=== PATIENT | male | born 1970 | race Caucasian/White ===

== ENCOUNTER 2017-12-23 07:59 | Emergency (ER) | payer BC, SELFPAY ==
[2017-12-23 08:03] VITALS: BP 128/77; PULSE 70; RESP 19; TEMP 36.8; O2SAT 98
--- NOTE | 2017-12-23 09:05 | ED.GENADUL ---
Disposition Clinical Impression: Peritonsillar abscess Disposition: HOME Condition: Improving Instructions: Peritonsillar Abscess (ED) Additional Instructions: Drink plenty of fluids and get plenty of rest. Drink plenty of cold fluids as well as cold soft foods such as yogurt, ice cream. Refrain from crackers, chips or hot foods or drinks. Take the antibiotics until finished. Alternate Tylenol and Motrin as needed and directed for pain. Follow-up with your scheduled appointment with the primary care doctor's office with Burt Boone at 11:15 AM tomorrow. You should receive a call from care management regarding her follow-up appointment with the ear nose and throat doctor. Return immediately to the emergency department with any worsening or new concerning symptoms. Prescriptions: Clindamycin [Cleocin] 300 mg PO QID 10 Days cap Referrals: Tobi Velazquez MD [ [facility] STAFF PHYSICIAN] - Brandon Catherine DO [OSTEOPATHIC DOCTOR] - Medical Decision Making - Lab Data Laboratory Tests 12/23/17 12/23/17 12/23/17 09:20 09:20 09:20 WBC 9.66 RBC 5.12 Hgb 16.0 Hct 47.4 MCV 92.6 MCH 31.3 MCHC 33.8 RDW 13.1 Plt Count 198 MPV 10.4 Immature Gran % 0.2 Neutrophils % 70.6 Lymphocytes % 15.3 Monocytes % 12.9 Eosinophils % 0.7 Basophils % 0.3 Absolute Neutrophils 6.81 H Absolute Lymphocytes 1.48 Absolute Monocytes 1.25 H Absolute Eosinophils 0.07 Absolute Basophils 0.03 Sodium 136 Potassium 4.2 Chloride 102 Carbon Dioxide 25.5 Anion Gap 8.5 BUN 15 Creatinine 0.90 Estimated GFR/1.73 m2 >= 60.00 Glucose 97 Lactate 0.6 Calcium 8.7 - Radiology Data Radiology results: report reviewed, image reviewed CT neck: 36 x 22 mm left peritonsillar abscess with mild displacement of oral and nasopharynx. - Medical Decision Making 09 -- 47-year-old male who presents with left ear and throat pain for the past 6 days, worse this morning. Hot potato voice. Moderate edema, erythema and minimal exudate to left tonsil with some encroachment on uvula concerning for possible peritonsillar abscess. Otherwise appears nontoxic, speaking in full sentences, no drooling, no trismus and airway intact. Vitals within normal limits. No other acute significant findings on exam. Unable to view TMs bilaterally due to cerumen impaction. We will place an IV, bolus IV fluids, Solu-Medrol, clindamycin, labs and obtain CT neck to assess for abscess. 1130 -- discussed with radiologist Dr. Shelley --there is a 3.5 x 2.5 cm peritonsillar abscess. Epiglottitis and aryepiglottic folds appear normal. Will call ENT for recommendations. Question would be whether to needle aspirate or incision and drainage here or transfer to local ENT or [facility]. 1214 -- discussed with ENT Dr. Velazquez -recommends needle aspiration, clindamycin 300 mg 4 times daily ?10 days and follow-up with PCP. States no indication for follow-up with ENT. Recommend lidocaine with epinephrine. 1330 -- needle aspiration of peritonsillar abscess at bedside collected approximately 3 cc of purulent drainage. Patient tolerated procedure well with some pain and states he feels better. Bleeding minimal approximately 1-2 cc. Will have patient gargle with water and peroxide and observe for approximately an hour and if still feeling better, will discharge to home. Will make appointment for patient to be seen in the PCP office for tomorrow for reevaluation. 1445 -- patient observed for approximately 90 minutes after procedure and he feels much better. Patient is able to tolerate sips of water. Pt feels good and would like to go home. Script for clindamycin given. Will hold on steroids at this time as patient was given dose of Solu-Medrol here today and will be evaluated by PCP tomorrow. Appointment was made with Burt Boone tomorrow at 11:15 AM. Patient was instructed to return immediately to the emergency department any worsening or new concerning symptoms such as difficulty breathing, swallowing or any other concerns. Patient had expressed concern about his chronic earwax and question whether he needed follow-up with ENT. I instructed patient to use Debrox eardrops for his chronic cerumen and will have care management arrange for follow-up with ENT regarding his peritonsillar abscess if needed. History of Present Illness - General Chief complaint: Sorethroat Stated complaint: SORE THROAT Time Seen by Provider: 12/23/17 08:23 Source: patient Mode of arrival: ambulatory Limitations: no limitations - History of Present Illness Initial comments: Patient is a 47-year-old male presents with left ear pain and sore throat for the past 6 days worse this morning. Patient states 5 days ago he had right ear pain but this is now resolved. Patient admits to more difficulty with swallowing this morning but was able to take sips of water. Patient otherwise has been able to eat and drink for the past 3 days. Denies known fever coughing. - Related Data Valacyclovir HCl [Valtrex] 500 mg PO PRN PRN 03/04/17 Clindamycin [Cleocin] 300 mg PO QID 10 Days cap 12/23/17 Allergies Allergy/AdvReac Type Severity Reaction Status Date / Time No Known Allergies Allergy Unverified 03/04/17 10:04 Review of Systems Constitutional: denies: chills, fever Eyes: denies: eye pain ENT: ear pain, throat pain. denies: dental pain Respiratory: denies: cough, shortness of breath Cardiovascular: denies: chest pain, dyspnea on exertion Gastrointestinal: denies: abdominal pain, nausea, vomiting Genitourinary: denies: urgency, dysuria, frequency Musculoskeletal: denies: back pain Skin: denies: rash, lesions Neurological: denies: headache, weakness, numbness Past Medical History - Past Medical History Medical history: no medical history Surgical history: other (knee surgery) - Social History Smoking status: current everyday smoker Alcohol use: heavy (daily drinker) Drug use: none General Exam - General Limitations: no limitations General appearance: alert, in no apparent distress - Eye Eye exam: Present: PERRL, EOMI - ENT ENT exam: Present: other (Unable to view TMs bilaterally due to hard cerumen impaction. Significant left tonsillar edema, erythema with minimal exudate. Left tonsil appears to be encroaching on uvula. Hot potato voice. Able to swallow secretions and speak in full sentences. No drooling. No frontal or maxillary sinus tenderness palpation.) - Neck Neck exam: Present: normal inspection, other (Mild tenderness to left anterior neck.) - Respiratory Respiratory exam: Present: normal lung sounds bilaterally. Absent: respiratory distress, wheezes, rales, rhonchi, stridor - Cardiovascular Cardiovascular Exam: Present: regular rate, normal rhythm. Absent: bradycardia, tachycardia - Neurological Exam Neurological exam: Present: alert, oriented X3 - Psychiatric Psychiatric exam: Present: normal affect - Skin Skin exam: Present: warm, dry, intact Course Vital Signs - 24 hr 12/23/ 08:03 Temperature 98.2 F Pulse 70 Respiratory 19 Rate Blood Pressure 128/77 Pulse Oximetry 98 Procedures - Abscess I/D Consent Obtained: Verbal Consent Site: Other (Left tonsil) Side (if applicable): Left Local Anesthetic: Lidocaine 1%, With Epi Technique: Needle Aspiration Amount of Fluid: 3 Irrigation: Yes Packing used?: None Complications: Pain
[2017-12-23 09:34] LABS: Lactate-non-spesis 0.6 mmol/L (0.6-1.4)
[2017-12-23 09:37] LABS: Abs Immature Grans 0.02 k/cumm (0.0-0.09); Absolute Basophil Count 0.03 k/cumm (0.0-0.2); Absolute Eosinophil Count 0.07 k/cumm (0.0-0.7); Absolute Lymphocyte Count 1.48 k/cumm (1.2-3.4); Absolute Monocyte Count 1.25 k/cumm (0.11-0.7); Absolute Neutrophil Count 6.81 k/cumm (1.2-6.7); Basophils % 0.3; Eosinophils % 0.7; HCT 47.4 % (40.0-50.0); Immature Grans % 0.2; Lymphocytes % 15.3; Mean Corp. HGB Concentration 33.8 g/dL (32.0-36.0); Mean Corpuscular Hemoglobin 31.3 pg (27.0-33.0); Mean Corpuscular Volume 92.6 fL (80-95); Mean Platelet Volume 10.4 fL (8.0-11.0); Monocytes % 12.9; Neutrophils % 70.6; Platelet Count 198 x1000/uL (130-400); RBC 5.12 m/cumm (4.50-6.00); RBC Distribution Width 13.1 % (11.8-14.1); White Blood Cell Count 9.66 k/cumm (4.4-10.8)
[2017-12-23] MEDS: Normal Saline 1,000 ML 1000 ML IV (09:41)
[2017-12-23] MEDS: Ketorolac 30 MG/ML VIAL IVP (09:43)
[2017-12-23] MEDS: methylPREDNISolone SUCC 125 MG VIAL IVP (09:43)
[2017-12-23 09:44] LABS: Anion Gap 8.5 mmol/L (3-11); BUN 15 mg/dL (7-18); CO2 25.5 mmol/L (21.0-32.0); Calcium 8.7 mg/dL (8.5-10.1); Chloride 102 mmol/L (98-107); Glucose 97 mg/dL (70-100); Potassium 4.2 mmol/L (3.5-5.1); Sodium 136 mmol/L (136-145)
[2017-12-23] MEDS: CLINDAMYCIN 900 MG/50 ML BAG 100 MG IVPB (09:54)
[2017-12-23 10:47] VITALS: BP 108/66; PULSE 55; RESP 16; TEMP 36.8; O2SAT 98
[2017-12-23] MEDS: Omnipaque 350 MG/ML 100 ML BTL IJ (11:15)
--- NOTE | 2017-12-23 11:25 | DI.RPTCT_ITS ---
SYMPTOMS/DIAGNOSIS: LT TONSILLAR EDEMA AND ERYTHEMA WITH EXUDATES, ? ABSCESS CERVICAL CT: CT examination of the cervical region was performed utilizing multi-slice imaging with intravenous infusion of 100 cc's of Omnipaque 350. Images obtained through the lung apices are unremarkable. There is bilateral prominence of cervical lymph nodes without gross adenopathy. No cervical mass identified. The tracheal and laryngeal structures appear intact. There is an apparent left peritonsillar abscess measuring up to about 36 x 22 mm in diameter on transaxial imaging with low attenuation center. Mild displacement and compression of oropharynx and nasopharynx noted. CONCLUSION: Findings consistent with left peritonsillar abscess.
[2017-12-23] MEDS: LORazepam 2 MG/ML VIAL 0.5 MG IVP (13:02)
[2017-12-23 14:42] VITALS: BP 119/77; PULSE 74; RESP 17; TEMP 36.7; O2SAT 98
== END 2017-12-23 15:07 | disposition home or self-care (01) ==
PROVIDERS: Emergency Provider Physician Assistant; PCP Family Medicine
DX: J36 Peritonsillar abscess (principal); H92.02 Otalgia, left ear; F17.210 Nicotine dependence, cigarettes, uncomplicated
CPT/HCPCS: 10160; 36415; 70491; 80048; 87040; 96361; 96365; 96375; 99285; 83605; 85025; 87081; J2060; J2930; J3490

== ENCOUNTER 2019-02-11 11:27 | Outpatient (REF) | payer BC, SELFPAY ==
[2019-02-11 20:08] LABS: ALT 31 U/L (16-63); AST 28 U/L (15-37); Albumin 4.1 g/dL (3.4-5.0); Alkaline Phosphatase 82 U/L (46-116); Anion Gap 7.6 mmol/L (3-11); BUN 15 mg/dL (7-18); Bilirubin, Total 0.5 mg/dL (0.2-1.0); CO2 30.4 mmol/L (21.0-32.0); CREATININE 0.95 mg/dL (0.70-1.30); Calcium 9.1 mg/dL (8.5-10.1); Calculated LDL 110 mg/dL; Chloride 102 mmol/L (98-107); Cholesterol 195 mg/dL (50-200); Glucose 93 mg/dL (70-100); HDL Cholesterol 77 mg/dL (40-60); Potassium 4.5 mmol/L (3.5-5.1); Sodium 140 mmol/L (136-145); Total Protein 7.3 g/dL (6.4-8.2); Triglyceride 42 mg/dL (30-150)
== END 2019-02-11 11:47 ==
LOC: NCHCN 11:27
PROVIDERS: PCP Family Medicine; Visit Provider Family Medicine
DX: Z00.00 Encounter for general adult medical examination without abnormal findings (principal); Z13.228 Encounter for screening for other metabolic disorders; Z13.220 Encounter for screening for lipoid disorders
CPT/HCPCS: 80053; 80061

== ENCOUNTER 2019-07-19 08:57 | Outpatient (CLI) | payer BC, SELFPAY ==
[2019-07-25 09:31] LABS: COVID-19 RT-PCR Result Not Detected (NotDetected)
== END 2019-07-19 09:17 ==
LOC: EP 14:17 → LBO 14:18
PROVIDERS: PCP Family Medicine; Visit Provider Family Medicine
DX: Z20.828 Contact with and (suspected) exposure to other viral communicable diseases (principal); Z11.59 Encounter for screening for other viral diseases; R05 Cough
CPT/HCPCS: 87449; U0003

== ENCOUNTER 2020-03-06 15:54 | Outpatient (REF) | payer BC, SELFPAY ==
[2020-03-11 18:42] LABS: Patient Race White; SARS-CoV-2 RNA Undetected (Undetected); SARS-CoV-2 Specimen Source Nasal
== END 2020-03-06 16:14 ==
LOC: NCHCN 15:54
PROVIDERS: PCP Family Medicine; Visit Provider Family Medicine
DX: R05 Cough (principal)
CPT/HCPCS: U0003

== ENCOUNTER 2021-01-06 16:00 | Emergency (ER) | payer BC, SELFPAY ==
[2021-01-06] VITALS (58 sets, daily range): BP systolic 99–170; BP diastolic 27–120; PULSE 50–92; RESP 9–30; TEMP 36.4–36.5; O2SAT 78–100
--- NOTE | 2021-01-06 16:00 | DI.RAD_ITS ---
Exam(s) XR ELBOW LT COMPLETE XR FOREARM LT XR HUMERUS LT EXAM: XR HUMERUS LT CLINICAL HISTORY: fall, deformity. TECHNIQUE: 2D digital imaging was performed. COMPARISON: CR,XR XR ELBOW LT COMPLETE from 01/06/2021 CR,XR XR ELBOW LT COMPLETE from 01/06/2021 CR,XR XR FOREARM LT from 01/06/2021 CR,XR XR ELBOW LT COMPLETE from 01/06/2021 CR,XR XR FOREARM LT from 01/06/2021 FINDINGS: There is posterior dislocation of the proximal radius and ulna with respect to the distal humerus. T he positioning is suboptimal. A comminuted, displaced intra-articular fracture of the radial head a nd fracture of the tip of the olecranon is seen. Distal humerus appears intact. IMPRESSION: Comminuted, displaced radial head fracture. Posterior dislocation. DATA REPOSITORY: RADIATION DOSE DELIVERED:
--- NOTE | 2021-01-06 16:00 | DI.CT_ITS ---
Exam(s) CT HEAD CERVICAL SPINE WO EXAM: CT HEAD CERVICAL SPINE WO CLINICAL HISTORY: fall 30 feet. TECHNIQUE: Imaging Protocol: Axial computed tomography images with coronal and sagittal reformatted images were created and reviewed FINDINGS: Head CT Ventricles and Extra axial spaces: Normal in size and morphology for the patient's age. Hemorrhage: None. Cerebral parenchyma: Normal. Midline shift: None. Brainstem/Cerebellum: Normal. Calvarium: Normal. Visualized Paranasal sinuses/Mastoids: Mucous retention cyst right maxillary sinus. Mucosal thickeni ng ethmoids Cervical Spine CT BONES: Vertebral body heights are maintained. Alignment is normal. There is no evidence of acute frac ture. Degenerative disc changes and facet degenerative changes are seen . SOFT TISSUES: No paraspinal hematoma. The airway appears intact. No pneumothorax is seen at the lung apices. IMPRESSION: Head CT: No acute abnormality. C-spine CT: Degenerative changes, no acute abnormality. RADIATION DOSE DELIVERED: 1,895.72mGy.cm Total DLP DATA REPOSITORY: All CT scans at this facility are submitted to the National Radiology Data Registry (NRDR) Dose Index Registry (DIR) with the [employer] (A[employer]). RADIATION OPTIMIZATION: All CT scans at this facility use at least one of these dose optimization te chniques: automated exposure control; mA and/or kV adjustment per patient size (includes targeted exa ms where dose is matched to clinical indication); or iterative reconstruction.
--- NOTE | 2021-01-06 16:00 | RT.EKG_ITS ---
APPROVED REPORT Exam: Resting ECG Reason for Exam: diaphoresis Patient Location: E HR:58 bpm ECG Measurements Heart Rate 58 AXIS SD 229 P 32 QRSd 103 QRS 0 QT 375 T 49 QTc 369 Conclusion Sinus bradycardia...rate< 60 Prolonged SD interval...SD >210, V-rate 50- 90 ST elev, probable normal early repol pattern...ST elevation, age<55
--- NOTE | 2021-01-06 16:15 | DI.CT_ITS ---
Exam(s) CT THORACIC LUMBAR SPINE WO CT CHEST/ABD/PEL W EXAM: CT CHEST/ABD/PEL W CLINICAL HISTORY: fall 30 ft, left arm deformity. TECHNIQUE: Imaging Protocol: Axial computed tomography images with coronal and sagittal reformatted images were created and reviewed CONTRAST MATERIAL: Intravenous: Omnipaque 350 Contrast volume:100 ml Oral: no COMPARISON: CT CT HEAD CERVICAL SPINE WO from 01/06/[address] HEAD CERVICAL SPINE WO from 01/06/[address] THORACIC LUMBAR SPINE WO from 01/06/[address] THORACIC LUMBAR SPINE WO from 01/06/2021 FINDINGS: CHEST and thoracic spine: Tracheobronchial tree: Patent where visualized. Mediastinum and Puja: No dominant adenopathy or fluid collection. Pulmonary parenchyma: Dependent changes. No consolidation or dominant measurable mass. Pleura: No effusion or pneumothorax. Lymph nodes: Within normal limits. Aorta: Thoracic portion non-dilated. No dissection. Heart: Normal size. No pericardial effusion. Bones: Unremarkable for age. No fracture or no lytic or blastic lesions. Mild scoliosis. Developme ntal ossicle adjacent to the tip of the spinous process of T3 and T4. No evidence of acute fracture. ABDOMEN and lumbar spine: Liver: Normal density. No measurable mass. Gallbladder and biliary tract: No radiodense calculus or dilation. Pancreas: Normal density, no abnormal calcifications or inflammatory process. Spleen: Normal size. Granulomas.. Kidneys: Normal size, contour and axis. No radiodense stones or obstructive uropathy. Bilateral cysts . Adrenal glands: No masses seen. Aorta: Abdominal portion non-dilated. Lymph nodes: Within normal limits. Soft tissues: Unremarkable. Bones: Minimal degenerative changes. No evidence of fracture. No gross evidence of disc herniation. PELVIS: Bladder: Symmetric distention, no gross wall thickening. Bowel: No obstruction or bowel wall thickening. Peritoneal cavity: No ascites, collection or mesenteric inflammatory response. No free air. Bones: Unremarkable for age.. No fracture. Reproductive organs: Within normal limits. IMPRESSION: No acute abnormality in the chest abdomen or pelvis.. RADIATION DOSE DELIVERED: Total DLP DATA REPOSITORY: All CT scans at this facility are submitted to the National Radiology Data Registry (NRDR) Dose Index Registry (DIR) with the [employer] (ACR). RADIATION OPTIMIZATION: All CT scans at this facility use at least one of these dose optimization te chniques: automated exposure control; mA and/or kV adjustment per patient size (includes targeted exa ms where dose is matched to clinical indication); or iterative reconstruction.
[2021-01-06] MEDS: fentaNYL 100 MCG/2 ML VIAL IVP ×2 (16:17→17:23)
[2021-01-06 16:28] LABS: Source Nasal/Nares
[2021-01-06 16:29] LABS: Abs Immature Grans 0.04 10^3/uL (0.0-0.06); Absolute Basophil Count 0.07 10^3/uL (0.0-0.2); Absolute Eosinophil Count 0.17 10^3/uL (0.0-0.7); Absolute Lymphocyte Count 2.67 10^3/uL (1.2-3.4); Absolute Monocyte Count 0.98 10^3/uL (0.1-0.8); Absolute Neutrophil Count 7.64 10^3/uL (1.2-6.7); Basophils % 0.6; Eosinophils % 1.5; HCT 46.2 % (40.0-50.0); HGB 15.2 g/dL (13.5-17.5); Immature Grans % 0.3; Lymphocytes % 23.1; MCH 31.3 pg (27.0-33.0); MCHC 32.9 % (32.0-36.0); MCV 95.1 fL (80-95); MPV 10.3 fL (8.0-11.0); Monocytes % 8.5; Nucleated RBC 0 %; Platelet Count 263 10^3/uL (130-400); RBC 4.86 10^6/uL (4.36-5.78); RDW 12.6 % (11.8-14.1); RDW-SD 44.4 fL; WBC 11.57 10^3/uL (4.4-10.8)
[2021-01-06 16:42] LABS: ALT 35 U/L (16-63); AST 29 U/L (15-37); Albumin 3.9 g/dL (3.4-5.0); Alkaline Phosphatase 92 U/L (46-116); Anion Gap 13.8 mmol/L (3-11); BUN 16 mg/dL (7-18); Bilirubin, Total 0.4 mg/dL (0.2-1.0); CO2 22.2 mmol/L (21.0-32.0); CREATININE 1.4 mg/dL (0.70-1.30); Calcium 9.2 mg/dL (8.5-10.1); Chloride 104 mmol/L (98-107); ETHANOL BLOOD 25.2 mg/dL (<3); Estimated GFR 53.86 (mL/min/1.73m2); Glucose 91 mg/dL (74-106); Potassium 3.7 mmol/L (3.5-5.1); Sodium 140 mmol/L (136-145); Total Protein 7.4 g/dL (6.4-8.2)
--- NOTE | 2021-01-06 16:57 | DI.VRAD_ITS ---
PROCEDURE INFORMATION: Exam: CT Head Without Contrast Exam date and time: 01/06/2021 4:14 PM Age: 50 years old Clinical indication: Injury or trauma; Fall; Blunt trauma (contusions or hematomas) TECHNIQUE: Imaging protocol: Computed tomography of the head without contrast. COMPARISON: None FINDINGS: Brain: No acute post-traumatic brain injury. Symmetric caliber of the cortical sulci. Normal coyle-white matter differentiation. Dural calcification. Cerebral ventricles: Normal configuration of the ventricles. Paranasal sinuses: Polypoid lesions in the right maxillary and sphenoid sinuses. Mastoid air cells: No mastoid effusion. Bones/joints: No acute calvarial injury. Soft tissues: No significant scalp hematoma. IMPRESSION: No acute post-traumatic brain injury. PROCEDURE INFORMATION: Exam: CT Cervical Spine Without Contrast Exam date and time: 01/06/2021 4:14 PM Age: 50 years old Clinical indication: Injury or trauma; Fall; Blunt trauma (contusions or hematomas) TECHNIQUE: Imaging protocol: Computed tomography images of the cervical spine without contrast. COMPARISON: CT Neck^NECK ST W ROUTINE (Adult) 12/23/2017 11:06 AM FINDINGS: Bones/joints: No acute bony injury or malalignment in the cervical spine. Discs/Spinal canal/Neural foramina: Degenerative change and disc bulging. Oropharynx: Tonsillar calcifications. Hypopharynx: Nondistention of the left piriform sinus. Lungs: Unremarkable apices as visualized. Soft tissues: Unremarkable. IMPRESSION: No acute bony injury or malalignment in the cervical spine. Dictated and Authenticated by: Sagar Archuleta MD. Ordering:DICK Rainey MD
[2021-01-06] MEDS: Normal Saline Flush 10 ML SYR IVP (17:01)
[2021-01-06] MEDS: Omnipaque 350 MG/ML 100 ML BTL IJ (17:01)
[2021-01-06 17:22] LABS: COVID-19 PCR Negative (Negative)
[2021-01-06] MEDS: Lactated Ringers 1,000 ML 1000 ML IV (17:24)
--- NOTE | 2021-01-06 17:24 | DI.VRAD_ITS ---
PROCEDURE INFORMATION: Exam: CT Chest With Contrast; Diagnostic Exam date and time: 01/06/2021 4:48 PM Age: 50 years old Clinical indication: Injury or trauma; Fall; Luq; Blunt trauma (contusions or hematomas) TECHNIQUE: Imaging protocol: Diagnostic computed tomography of the chest with contrast. Contrast material: OMNIPAQUE 350; Contrast volume: 100 ml; Contrast route: INTRAVENOUS (IV); COMPARISON: CT HEAD CERVICAL SPINE WO 01/06/2021 4:39 PM FINDINGS: Lungs: Dependent atelectasis within the lung bases. Pleural spaces: Unremarkable. No pneumothorax. No pleural effusion. Heart: Unremarkable. No cardiomegaly. No pericardial effusion. Aorta: Unremarkable. No aortic aneurysm. Lymph nodes: Unremarkable. No enlarged lymph nodes. Bones/joints: Possible nondisplaced fracture of the tip of the spinous process of T3 (sagittal reformatted image 86, series 7). Correlate with pain at this site. Soft tissues: Unremarkable. IMPRESSION: 1. Possible nondisplaced fracture of the tip of the T3 spinous process. Correlate with pain at this site. 2. Dependent atelectasis within the lung bases. PROCEDURE INFORMATION: Exam: CT Abdomen And Pelvis With Contrast Exam date and time: 01/06/2021 4:48 PM Age: 50 years old Clinical indication: Injury or trauma; Fall; Luq; Blunt trauma (contusions or hematomas) TECHNIQUE: Imaging protocol: Computed tomography of the abdomen and pelvis with contrast. Contrast material: OMNIPAQUE 350; Contrast volume: 100 ml; Contrast route: INTRAVENOUS (IV); COMPARISON: CT HEAD CERVICAL SPINE WO 01/06/2021 4:39 PM FINDINGS: Liver: Unremarkable. No mass. Gallbladder and bile ducts: Unremarkable. No calcified stones. No ductal dilation. Pancreas: Unremarkable. No ductal dilation. Spleen: Multiple calcified granulomas within the spleen. No splenic mass or laceration. Adrenal glands: Normal. No mass. Kidneys and ureters: Bilateral renal cysts and low-density lesions, too small to accurately characterize. No renal stone or hydronephrosis. Stomach and bowel: Unremarkable. No obstruction. No mucosal thickening. Appendix: No evidence of appendicitis. Intraperitoneal space: Unremarkable. No free air. No significant fluid collection. Vasculature: Unremarkable. No abdominal aortic aneurysm. Lymph nodes: Unremarkable. No enlarged lymph nodes. Urinary bladder: Unremarkable as visualized. Reproductive: Unremarkable as visualized. Bones/joints: Posterior dislocation of the left elbow with fracture of the left radial head, incompletely visualized. Soft tissues: Unremarkable. IMPRESSION: 1. No acute abdominopelvic process. 2. Posterior dislocation of the left elbow with fracture of the radial head, incompletely visualized.. Dictated and Authenticated by: Marcelino Thayer MD. Ordering:DICK Rainey MD
--- NOTE | 2021-01-06 17:44 | DI.VRAD_ITS ---
PROCEDURE INFORMATION: Exam: XR Left Elbow Exam date and time: 01/06/2021 5:08 PM Age: 50 years old Clinical indication: Injury or trauma; Fall; Dislocation; Severity not specified; Elbow; Left TECHNIQUE: Imaging protocol: XR Left elbow. Views: 3 or more views. COMPARISON: No relevant prior studies available. FINDINGS: Bones/joints: There is posterior dislocation of the elbow joint. There is a comminuted, displaced intra-articular fracture of the radius head. There is a possible tiny fracture at the tip of the olecranon seen on the lateral exam. Soft tissues: There is swelling of the elbow soft tissues. No soft tissue radiopaque foreign body. IMPRESSION: 1. Posterior dislocation of the elbow joint. 2. Comminuted displaced fracture of the radius head. 3. Possible tiny fracture at the tip of the olecranon. Dictated and Authenticated by: Marcelino Thayer MD. Ordering:DICK Rainey MD
--- NOTE | 2021-01-06 17:47 | DI.VRAD_ITS ---
PROCEDURE INFORMATION: Exam: XR Left Forearm Exam date and time: 01/06/2021 5:08 PM Age: 50 years old Clinical indication: Injury or trauma; Fall; Blunt trauma (contusions or hematomas); Arm, upper and elbow and arm, lower; Left TECHNIQUE: Imaging protocol: XR Left forearm. Views: 2 views. COMPARISON: CR XR ELBOW LT COMPLETE 01/06/2021 5:00 PM FINDINGS: Bones/joints: There is posterior dislocation of the elbow joint. There is a comminuted displaced fracture of the radius head. There is a tiny fracture at the tip of the olecranon. The wrist joint is not visualized on this examination. Soft tissues: There is swelling of the soft tissues of the elbow. IMPRESSION: 1. Posterior dislocation of the elbow joint. 2. Comminuted, displaced fracture of the radius head. 3. Tiny fracture of the tip of the olecranon. Dictated and Authenticated by: Marcelino Thayer MD. Ordering:DICK Rainey MD
--- NOTE | 2021-01-06 17:49 | DI.VRAD_ITS ---
PROCEDURE INFORMATION: Exam: XR Left Humerus Exam date and time: 01/06/2021 5:08 PM Age: 50 years old Clinical indication: Injury or trauma; Fall; Blunt trauma (contusions or hematomas); Arm, upper and elbow and arm, lower; Left TECHNIQUE: Imaging protocol: XR Left humerus. Views: 2 or more views. COMPARISON: CR XR ELBOW LT COMPLETE 01/06/2021 5:00 PM FINDINGS: A single AP view of the left humerus is submitted. No displaced fracture is identified. The distal end of the humerus and the elbow joint is not visualized. The acromioclavicular joint is intact. The glenohumeral joint is grossly intact. If there is a clinical concern for posterior dislocation then scapular Y-view should be performed. IMPRESSION: Grossly intact humerus on this single AP view. Dictated and Authenticated by: Marcelino Thayer MD. Ordering:DICK Rainey MD
[2021-01-06] MEDS: Propofol 200 MG/20 ML VIAL 100 MG IVP ×3 (18:02→18:06)
[2021-01-06] MEDS: Propofol 200 MG/20 ML VIAL ×3 (18:09→18:13)
--- NOTE | 2021-01-06 18:15 | DI.RAD_ITS ---
Exam(s) XR ELBOW LT COMPLETE EXAM: XR ELBOW LT COMPLETE CLINICAL HISTORY: post reduction films. TECHNIQUE: 2D digital imaging was performed. COMPARISON: CR,XR XR ELBOW LT COMPLETE from 01/06/2021 FINDINGS: A posterior splint has been placed. The previously noted dislocation has been reduced. A comminuted fracture of the radial head with significant displacement and separation of fracture fragments is no rene. No fractures are visible of the distal humerus or proximal ulna. A joint effusion is seen. IMPRESSION: Status post reduction of posterior dislocation. Comminuted displaced fracture of the radial head. DATA REPOSITORY: RADIATION DOSE DELIVERED:
--- NOTE | 2021-01-06 18:56 | ED.GENADUL_ITS ---
Discharge Plan Disposition Patient Disposition: HOME Condition: Good Discharge Details Clinical Impression: Closed fracture dislocation of elbow, Fracture of thoracic spine Primary Care Provider: Nayeli Rios V ED Provider: Brigid Johnson Home Meds and New Rx's Prescriptions: New hydromorphone [Dilaudid] 2 mg tablet 2 mg PO Q6H PRNQty: 10 RF: 0 Continued valacyclovir [Valtrex] 500 MG tablet 500 mg PO PRN PRNRF: 0 Discharge Instructions Additional Instructions: Call orthopedics for follow-up on Thursday, keep your splint in place Ice, take ibuprofen 600 mg every 8 hours with food Do not combine alcohol and Dilaudid Take Dilaudid only as needed as this medication is addictive and can make you constipated, do not operate your vehicle for 8 hours after taking this medication Stand Alone Forms: Work Release Referrals: Mumtaz Walls MD [ [facility] - Discharge Data Discharge Date/Time-TO BE ENTERED AT DEPARTURE: 01/06/21 22:45 Medical Decision Making <VAL Mars - Last Filed: 01/07/21 16:27> Patient is alert and oriented, he is quite diaphoretic and in significant pain He has a deformity to his left elbow Given the mechanism of injury, falling approximately 30 feet, I will order CT head, cervical spine, chest, abdomen, pelvis, and left elbow x-ray Patient is neurovascularly intact, alert and oriented Line was placed Patient was given 100 mcg of fentanyl with mild relief in symptoms Type and screen and blood including CBC and CMP were ordered Patient was sedated and reduction was performed the patient left elbow Patient tolerated this procedure with a significant amount of conscious sedation, please see Dr. Duarte's documentation I did review his CT imaging and appears to be a preserved inferior posterior radial head dislocation, this was discussed with Dr. Stallworth, orthopedist at [facility] and secondary to the fracture, this is unable to be reduced without surgery, he does not recommend emergent reassessment and reduction and states that patient is stable for outpatient follow-up on Thursday with Dr. Walls CT chest, abdomen, and pelvis reviewed and do not show acute abnormality, initially it was thought that the T2 fracture was acute, however patient does not have any tenderness in this area and my suspicion that this is she is quite low Patient discharged home in stable condition feeling symptomatically improved, ambulatory with steady gait at time of discharge home HPI <VAL Mars Last Filed: 01/07/21 16:27> General Mode of arrival: wheelchair . Date/Time Provider Initiated Documentation: 01/06/21 16:03 . Limitations to Documentation: no limitations . Information obtained by: patient . HPI Narrative: This 50-year-old gentleman with history of alcoholism presents for 30 foot fall out of tree where he rolled. He landed on his left side. He denies loss of consciousness. He has significant pain with deformity to his left elbow. He denies any history of anticoagulation, chest pain, abdominal pain, or any additional complaints at this time. He did have 2 beers prior to working on a tree in his yard. He states his drove him to the emergency room. He was ambulatory after the event occurred. He is unable to move his elbow. He denies any shortness of breath. He denies any urinary issues. Related Data Home Medications Medication Instructions Recorded Confirmed valacyclovir [Valtrex] 500 mg PO PRN PRN 03/04/17 01/06/21 hydromorphone [Dilaudid] 2 mg PO Q6H PRN #10 tab 01/06/21 Previous Rx's Medication Instructions Recorded hydromorphone [Dilaudid] 2 mg PO Q6H PRN #10 tab 01/06/21 Allergies Allergy/AdvReac Type Severity Reaction Status Date / Time No Known Allergies Allergy Unverified 03/04/17 10:04 General Stated Complaint: Trauma JULIÁN: 2 Review of Systems <VAL Mars - Last Filed: 01/07/21 16:27> All systems reviewed & are unremarkable except as noted in HPI and below PFSH <VAL Mars - Last Filed: 01/07/21 16:27> Social History Smoking/Tobacco Use Status: Current every day Smoking risk assessment performed?: Yes Alcohol Intake: current Drug use: Occasionally Do you feel safe in your relationship?: Yes Exam <VAL Mars Last Filed: 01/07/21 16:27> Const General: ill appearing HENDC Head: normal to inspection Face and sinus: normal facial exam Other: Uvula midline No hemotympanum Eyes Pupils: PERRL Neck Other: No midline tenderness Chest Other: Ecchymosis noted to anterior thorax, no crepitus no flail chest Resp Effort & Inspection: normal respiratory effort Auscultation: clear to auscultation bilaterally Cardio Rate: regular rate Rhythm: regular rhythm Other: Distal pulses intact all 4 extremities GI Other: Ecchymosis laterally to the right, nontender Other: No scrotal abnormality or bruising Skin Other: No tenderness to thoracic or lumbar spine, no CVA tenderness, no abdominal bruit or pulsatile mass Neuro General: patient alert and patient oriented x3 Cranial Nerves: CN's II-XI intact bilaterally Other: GCS 15 Strength and sensation intact to all unaffected extremities, sensation intact to affected extremity Extrem Other: Distal pulses intact, obvious deformity to left elbow No open fracture, neurovascularly intact Psych Appearance: well kempt Course <VAL Mars - Last Filed: 01/07/21 16:27> Vital Signs Vital signs: Vital Signs Pulse 70 01/06/21 16:07 Respiratory Rate 22 01/06/21 16:07 Blood Pressure 129/83 01/06/21 16:07 Pulse Oximetry 100 01/06/21 16:07 Pulse 55 L 01/06/21 18:31 Pulse 63 01/06/21 18:32 Respiratory Rate 16 01/06/21 18:32 Respiratory Effort 01/06/21 17:33 Respiratory Depth Normal 01/06/21 17:33 Respiratory Pattern Normal 01/06/21 17:33 Blood Pressure 152/95 H 01/06/21 18:31 Blood Pressure Mean 105 01/06/21 18:31 Blood Pressure Position Sitting 01/06/21 16:07 Pulse Oximetry 99 01/06/21 18:32 Respiratory End-tidal CO2 31 01/06/21 18:32 Oxygen Delivery Method Room Air 01/06/21 16:07 Oxygen Flow Rate 0 01/06/21 16:07 Pain Level 8 01/06/21 17:23 Lab/Test Results Lab/Test Results: Laboratory Tests Range/Units 01/06/21 01/06/21 01/06/21 16:10 16:10 16:10 WBC (4.4-10.8) 10^3/uL 11.57 H RBC (4.36-5.78) 10^6/uL 4.86 Hgb (13.5-17.5) g/dL 15.2 Hct (40.0-50.0) % 46.2 MCV (80-95) fL 95.1 H MCH (27.0-33.0) pg 31.3 MCHC (32.0-36.0) % 32.9 RDW (11.8-14.1) % 12.6 Plt Count (130-400) 10^3/uL 263 MPV (8.0-11.0) fL 10.3 Immature Gran % 0.3 Neutrophils % 66.0 Lymphocytes % 23.1 Monocytes % 8.5 Eosinophils % 1.5 Basophils % 0.6 Nucleated RBC % % 0 Absolute Neutrophils (1.2-6.7) 10^3/uL 7.64 H Absolute Lymphocytes (1.2-3.4) 10^3/uL 2.67 Absolute Monocytes (0.1-0.8) 10^3/uL 0.98 H Absolute Eosinophils (0.0-0.7) 10^3/uL 0.17 Absolute Basophils (0.0-0.2) 10^3/uL 0.07 Sodium (136-145) mmol/L 140 Potassium (3.5-5.1) mmol/L 3.7 Chloride (98-107) mmol/L 104 Carbon Dioxide (21.0-32.0) mmol/L 22.2 Anion Gap (3-11) mmol/L 13.8 H BUN (7-18) mg/dL 16 Creatinine (0.70-1.30) mg/dL 1.4 H Estimated GFR/1.73 m2 (mL/min/1.73m2) 53.86 Glucose (74-106) mg/dL 91 Calcium (8.5-10.1) mg/dL 9.2 Total Bilirubin (0.2-1.0) mg/dL 0.4 AST (15-37) U/L 29 ALT (16-63) U/L 35 Alkaline Phosphatase (46-116) U/L 92 Total Protein (6.4-8.2) g/dL 7.4 Albumin (3.4-5.0) g/dL 3.9 Ethyl Alcohol (<3) mg/dL 25.2 COVID-19 Source SARS-CoV-2 (PCR) (Negative) Patient ABO/Rh O Positive Antibody Screen NEGATIVE Range/Units 01/06/21 16:20 WBC (4.4-10.8) 10^3/uL RBC (4.36-5.78) 10^6/uL Hgb (13.5-17.5) g/dL Hct (40.0-50.0) % MCV (80-95) fL MCH (27.0-33.0) pg MCHC (32.0-36.0) % RDW (11.8-14.1) % Plt Count (130-400) 10^3/uL MPV (8.0-11.0) fL Immature Gran % Neutrophils % Lymphocytes % Monocytes % Eosinophils % Basophils % Nucleated RBC % % Absolute Neutrophils (1.2-6.7) 10^3/uL Absolute Lymphocytes (1.2-3.4) 10^3/uL Absolute Monocytes (0.1-0.8) 10^3/uL Absolute Eosinophils (0.0-0.7) 10^3/uL Absolute Basophils (0.0-0.2) 10^3/uL Sodium (136-145) mmol/L Potassium (3.5-5.1) mmol/L Chloride (98-107) mmol/L Carbon Dioxide (21.0-32.0) mmol/L Anion Gap (3-11) mmol/L BUN (7-18) mg/dL Creatinine (0.70-1.30) mg/dL Estimated GFR/1.73 m2 (mL/min/1.73m2) Glucose (74-106) mg/dL Calcium (8.5-10.1) mg/dL Total Bilirubin (0.2-1.0) mg/dL AST (15-37) U/L ALT (16-63) U/L Alkaline Phosphatase (46-116) U/L Total Protein (6.4-8.2) g/dL Albumin (3.4-5.0) g/dL Ethyl Alcohol (<3) mg/dL COVID-19 Source Nasal/Nares SARS-CoV-2 (PCR) (Negative) Negative Patient ABO/Rh Antibody Screen Procedures <VAL Mars - Last Filed: 01/07/21 16:27> Orthopedic Fracture Reduction Fracture #1: Time Out Performed: Yes Side: left Fracture Reduction Location: radius Technique: direct manipulation and traction/counter-traction Post Reduction X-rays Demonstrate: anatomical reduction Post-reduction neuro exam: no change Post-reduction vascular exam: intact Splint Applied: Yes Patient Tolerated Procedure: well <Cj Duarte MD - Last Filed: 01/06/21 19:15> Procedural Sedation Indication: fracture/dislocation reduction Presedation Evaluation: normally healthy male without allergies and prior surgeries on his knee without complications with anesthsia ASA Class: I Preparation: nuclear monitoring technician applied, pulse oximeter, capnometry used, supplemental O2 applied, suction/airway equipment at bedside and IV secured Fentanyl: IV IV Propofol dose (mg): 400 Patient Tolerated Procedure: well Complications: none Additional Comments: patient initially given 100mg, and then subsequently was given 50mg x4 and then another 100mg to obtain adequate sedation and had reduction of the elbow, no complications. Total 400mg given
--- NOTE | 2021-01-06 18:57 | RESPIRATORY ---
Pt had conscious sedation for left elbow dislocation. AFWNL, no complications. Pt stable and on RA, awake, alert, talking.
[2021-01-06] MEDS: HYDROmorphone 2 MG/ML VIAL 1 MG IVP ×2 (19:00→19:20)
--- NOTE | 2021-01-06 19:03 | DI.VRAD_ITS ---
PROCEDURE INFORMATION: Exam: CT Thoracic Spine Without Contrast Exam date and time: 01/06/2021 4:48 PM Age: 50 years old Clinical indication: Injury or trauma; Fall; Blunt trauma (contusions or hematomas) TECHNIQUE: Imaging protocol: Computed tomography images of the thoracic spine without contrast. COMPARISON: CT HEAD CERVICAL SPINE WO 01/06/2021 4:39 PM FINDINGS: Vertebrae: There are small enthesophytes projecting from the inferior edges of the T3 and T4 spinous processes with linear lucencies at both sites. These changes are likely old. Correlate clinically with pain localized to these areas to exclude acute nondisplaced fractures. The facet joints throughout the thoracic spine are intact. Vertebral body morphology is normal. There are mild degenerative disc changes throughout the thoracic spine and there is a mild accentuation of the thoracic kyphosis. There is a mild scoliosis of the thoracic spine. No subluxation is identified. Discs/Spinal canal/Neural foramina: No bony spinal stenosis is present. Other bones/joints: Bone density is normal. Soft tissues: Unremarkable. Lungs: There are dependent changes within the lung bases. IMPRESSION: There are small enthesophytes projecting from the inferior edges of the T3 and T4 spinous processes with linear lucencies at both sites. These changes are likely old. Correlate clinically with pain localized to these areas to exclude acute nondisplaced fractures. PROCEDURE INFORMATION: Exam: CT Lumbar Spine Without Contrast Exam date and time: 01/06/2021 4:48 PM Age: 50 years old Clinical indication: Injury or trauma; Fall; Blunt trauma (contusions or hematomas) TECHNIQUE: Imaging protocol: Computed tomography images of the lumbar spine without contrast. COMPARISON: CT HEAD CERVICAL SPINE WO 01/06/2021 4:39 PM FINDINGS: Vertebrae: Vertebral body morphology is normal. The facet joints are intact. No fracture or subluxation is identified. Discs/Spinal canal/Neural foramina: Mild degenerative disc disease and facet arthrosis is present within the mid and lower lumbar spine. No severe bony spinal stenosis. Other bones/joints: Bone density is normal. Kidneys and ureters: Bilateral renal cysts and too small to accurately characterize low-density renal lesions. Soft tissues: Unremarkable. IMPRESSION: 1. Mild degenerative spondylosis of the lumbar spine. 2. No fracture. Dictated and Authenticated by: Marcelino Thayer MD. Ordering:DADA Corona MD
--- NOTE | 2021-01-06 20:30 | DI.CT_ITS ---
Exam(s) CT UPPER EXTREMITY LT WO EXAM: CT UPPER EXTREMITY LT WO CLINICAL HISTORY: fracture disclocation elbow TECHNIQUE: Imaging Protocol: Axial computed tomography images with coronal and sagittal reformatted images were created and reviewed. CONTRAST MATERIAL: Noncontrast COMPARISON: CR,XR XR ELBOW LT COMPLETE from 01/06/2021 CR,XR XR ELBOW LT COMPLETE from 01/06/2021 FINDINGS: Bones: There is a comminuted fracture of the radial head and neck with significant displacement later ally and inferiorly. No bony fragments are seen in the joint space. The distal humerus and proximal ulna appear intact and normally aligned.. A joint effusion is seen. There is soft tissue swelling. . IMPRESSION: Markedly comminuted and displaced fracture of the radial head. RADIATION DOSE DELIVERED: 269.53mGy.cm Total DLP DATA REPOSITORY: All CT scans at this facility are submitted to the National Radiology Data Registry (NRDR) Dose Index Registry (DIR) with the [employer] (A[employer]). RADIATION OPTIMIZATION: All CT scans at this facility use at least one of these dose optimization te chniques: automated exposure control; mA and/or kV adjustment per patient size (includes targeted exa ms where dose is matched to clinical indication); or iterative reconstruction.
--- NOTE | 2021-01-06 20:38 | DI.VRAD_ITS ---
PROCEDURE INFORMATION: Exam: XR Left Elbow Exam date and time: 01/06/2021 6:20 PM Age: 50 years old Clinical indication: Pain; Elbow; Left; Patient HX: Post reduction films TECHNIQUE: Imaging protocol: XR Left elbow. Views: 3 or more views. COMPARISON: CR XR ELBOW LT COMPLETE 01/06/2021 5:00 PM FINDINGS: Tubes, catheters and devices: Posterior splint is present. Bones/joints: The humeral-ulnar joint has been reduced since the previous exam. The fractured radius neck and head remain dorsally and radially dislocated. A large elbow joint effusion is present. Soft tissues: There is swelling of the elbow soft tissues. IMPRESSION: 1. Interval reduction of the humeral-ulnar joint. 2. Persistent dislocation of the fractured radius neck and head. Dictated and Authenticated by: Marcelino Thayer MD. Ordering:DICK Rainey MD
--- NOTE | 2021-01-06 20:50 | NUR.NOTE ---
Nursing Note: Patient up out of bed with stand by assist, ambulated to bathroom with steady gait then back to his room. ER Provider aware of ambulation results.
[2021-01-06] MEDS: HYDROmorphone 2 MG TAB PO (22:04)
[2021-01-06] MEDS: HYDROmorphone 2 MG TAB 4 MG PO (22:07)
--- NOTE | 2021-01-06 22:25 | DI.VRAD_ITS ---
PROCEDURE INFORMATION: Exam: CT Left Upper Extremity Without Contrast, Elbow Exam date and time: 01/06/2021 8:39 PM Age: 50 years old Clinical indication: Pain; Left; Patient HX: Fracture dislocation elbow TECHNIQUE: Imaging protocol: CT of the Left upper extremity without contrast was performed. Exam focused on the elbow. Radiation optimization: All CT scans at this facility use at least one of these dose optimization techniques: automated exposure control; mA and/or kV adjustment per patient size (includes targeted exams where dose is matched to clinical indication); or iterative reconstruction. COMPARISON: CR XR ELBOW LT COMPLETE 01/06/2021 8:04 PM FINDINGS: Bones/joints: Comminuted fracture and infero posterior dislocation of the radial head. Normal alignment of the humeral trochlea and and ulna. Soft tissues: Normal. Other findings: Mild cardiomegaly. Multiple calcifications within the spleen compatible with granulomas. Small right renal cyst within the inferior pole. IMPRESSION: 1. Comminuted fracture and infero posterior dislocation of the radial head. The humeral trochlea is well seated within the trochlear notch of the ulna. 2. Mild cardiomegaly. Dictated and Authenticated by: Brandon Fleming MD. Ordering:DICK Rainey MD
== END 2021-01-06 22:45 | disposition home or self-care (01) ==
PROVIDERS: Emergency Medicine; Emergency Provider Physician Assistant; PCP Family Medicine
DX: S52.122A Displaced fracture of head of left radius, initial encounter for closed fracture (principal); W17.89XA Other fall from one level to another, initial encounter; R61 Generalized hyperhidrosis; Y90.1 Blood alcohol level of 20-39 mg/100 ml; Z20.822 Contact with and (suspected) exposure to COVID-19; Z03.818 Encounter for observation for suspected exposure to other biological agents ruled out
CPT/HCPCS: 24600; 24650; 74177; 80053; 86850; 86900; 86901; 87635; 93005; 96361; 96374; 96375; 96376; 99282; 70450; 71260; 72125; 72128; 72131; 73060; 73080; 73090; 73200; 80320; 85025; 93010; J2704; J3010; J3490

== ENCOUNTER 2021-01-08 13:16 | Outpatient (CLI) | payer BC, SELFPAY ==
--- NOTE | 2021-01-08 13:00 | DI.RAD_ITS ---
Exam(s) XR ELBOW LT LIMITED EXAM: XR ELBOW LT LIMITED INDICATION: L HUMERUS FRACTURE/DISLOCATION. COMPARISON: CR,XR XR ELBOW LT COMPLETE from 01/06/2021 TECHNIQUE: 2D digital imaging was performed. FINDINGS: Marked soft tissue swelling is around the elbow. There is been visible change in the markedly commin uted displaced fracture of the radial head. DATA REPOSITORY: RADIATION DOSE DELIVERED:
== END 2021-01-08 13:17 | disposition home or self-care (01) ==
LOC: DIORS 13:16
PROVIDERS: PCP Family Medicine; Referring Provider Family Medicine; Visit Provider Student in an Organized Health Care Education/Training Program
DX: S42.402A Unspecified fracture of lower end of left humerus, initial encounter for closed fracture (principal); X58.XXXA Exposure to other specified factors, initial encounter
CPT/HCPCS: 73070

== ENCOUNTER 2021-01-09 03:34 | Outpatient (CLI) | payer BC, SELFPAY ==
[2021-01-09 10:12] LABS: Source Nasal/Nares
[2021-01-09 12:51] LABS: COVID-19 PCR Negative (Negative)
== END 2021-01-09 03:35 | disposition home or self-care (01) ==
LOC: LBO 03:34
PROVIDERS: PCP Family Medicine; Visit Provider Student in an Organized Health Care Education/Training Program
DX: Z20.822 Contact with and (suspected) exposure to COVID-19 (principal); Z01.818 Encounter for other preprocedural examination
CPT/HCPCS: 87635

== ENCOUNTER 2021-01-11 07:59 | Day surgery (SDC) | payer BC, SELFPAY ==
[2021-01-11] VITALS (8 sets, daily range): BP systolic 93–114; BP diastolic 42–68; PULSE 68–76; RESP 16–61; TEMP 36.3–36.7; O2SAT 94–96; BMI 29.2
--- NOTE | 2021-01-11 08:09 | ANES.PREOP_ITS ---
General Info Date of Service Date Performed: 01/11/21 Height: 6 ft 2 in Weight: 103.5 kg Body Mass Index (BMI): 29.2 Surgical Procedure: Operation Date: 01/11/21 11:40 Proposed Procedures Side Surgeon p LEFT ELBOW RADIAL HEAD REPLACEMENT, LATERAL LIGAMENT REPAIR, AND ANY OTHER INDICATED PROCEDURES Left Mumtaz Walls MD Meds Allergies and Home Medications Allergies Allergy/AdvReac Type Severity Reaction Status Date / Time No Known Allergies Allergy Unverified 01/09/21 10:24 Home Medication Medication Instructions Recorded valacyclovir [Valtrex] 500 mg PO PRN PRN 03/04/17 hydromorphone [Dilaudid] 2 mg PO Q6H PRN #10 tab 01/06/21 naproxen 250 mg tablet 250 - 500 mg PO BID PRN #60 tab 01/08/21 oxycodone 5 mg tablet 5 - 10 mg PO Q4H PRN #22 tab MDD 01/08/21 60mg Current Visit Medications: Current Medications Generic Name Dose Route Start Last Admin Trade Name Freq PRN Reason Stop Dose Admin Ringer's Solution 1,000 mls @ 100 mls/hr 01/11/21 06:00 IV 02/09/21 23:59 INFUSION SOFIA Cefazolin Sodium 3,000 mg/ 100 mls @ 200 mls/hr 01/11/21 06:00 Sodium Chloride IVPB 01/11/21 23:59 PREOP SOFIA IV Miscellaneous Supplies 1 each 01/11/21 06:00 Iv Access IV 02/09/21 23:59 DIRECTED SOFIA Oxycodone HCl 5 - 10 mg 01/11/21 07:19 Oxycodone 5 Mg Tab PO Q4H PRN PRN Sodium Chloride 0 ml 01/11/21 06:00 Normal Saline Flush 10 Ml Syr IV 02/09/21 23:59 PRN PRN Sodium Chloride 0 ml 01/11/21 06:00 Normal Saline 10 Ml Vial IJ 02/09/21 23:59 DIRECTED PRN Sterile Water 0 ml 01/11/21 06:00 Water,Injection,Sterile 10 Ml Vial IJ 02/09/21 23:59 DIRECTED PRN PFSH Active Problems Active Problems: Problem Status Onset Code Closed fracture dislocation of elbow 01/06/21 S42.409A Fracture of thoracic spine S22.009A Left radial head fracture 01/06/21 S52.122A Medical History Medical History Abnormal auditory perception (12/28/17) Daytime sleepiness (12/28/17) Episode of apnea (12/28/17) H/O cold sores Smoker (12/28/17) Tobacco Smoking/Tobacco Use Status: Current every day Tobacco Type: cigarettes Alcohol Alcohol Intake: current Alcohol intake frequency: 0-2 drinks per day Alcohol ty pe: beer Substance Use Substance use: Occasionally Substance use type: marijuana Vital Signs and Lab Results Vital Signs Most Recent Vital Signs in EMR: Temp Pulse Resp BP Pulse Ox 36.3 C L 76 16 109/68 96 01/11/21 08:24 01/11/21 08:24 01/11/21 08:24 01/11/21 08:24 01/11/21 08:24 Lab Results Blood Type / Crossmatch: Patient ABO/Rh O Positive 01/06/21 16:10 01/06/21 Antibody Screen NEGATIVE 01/06/21 16:10 01/06/21 Complete Blood Count: White Blood Count 11.57 10^3/uL (4.4-10.8) H 01/06/21 16:10 01/06/21 Red Blood Count 4.86 10^6/uL (4.36-5.78) 01/06/21 16:10 01/06/21 Hemoglobin 15.2 g/dL (13.5-17.5) 01/06/21 16:10 01/06/21 Hematocrit 46.2 % (40.0-50.0) 01/06/21 16:10 01/06/21 Platelet Count 263 10^3/uL (130-400) 01/06/21 16:10 01/06/21 Complete Metabolic Panel: Sodium Level 140 mmol/L (136-145) 01/06/21 16:10 01/06/21 Potassium Level 3.7 mmol/L (3.5-5.1) 01/06/21 16:10 01/06/21 Chloride Level 104 mmol/L (98-107) 01/06/21 16:10 01/06/21 Carbon Dioxide Level 22.2 mmol/L (21.0-32.0) 01/06/21 16:10 01/06/21 Blood Urea Nitrogen 16 mg/dL (7-18) 01/06/21 16:10 01/06/21 Creatinine 1.4 mg/dL (0.70-1.30) H 01/06/21 16:10 01/06/21 Estimated GFR/1.73 m2 53.86 (mL/min/1.73m2) 01/06/21 16:10 01/06/21 Calcium Level 9.2 mg/dL (8.5-10.1) 01/06/21 16:10 01/06/21 Albumin 3.9 g/dL (3.4-5.0) 01/06/21 16:10 01/06/21 Glucose Level 91 mg/dL (74-106) 01/06/21 16:10 01/06/21 Liver Function Panel: Alanine Aminotransferase (ALT/SGPT) 35 U/L (16-63) 01/06/21 16:10 01/06/21 Aspartate Amino Transf (AST/SGOT) 29 U/L (15-37) 01/06/21 16:10 01/06/21 Coagulation Panel: No Data to Display Cardiac Panel: No Data to Display Arterial Blood Gas: No Data to Display Venous Blood Gas: No Data to Display Pancreas Panel: No Data to Display Thyroid Panel: No Data to Display Infectious Disease: Coronavirus (COVID-19)(PCR) Negative (Negative) 01/09/21 09:12 01/09/21 Coronavirus 2019 Source Nasal/Nares 01/09/21 09:12 01/09/21 Blood Cultures: No Data to Display Toxicology Panel: Ethyl Alcohol Level 25.2 mg/dL (<3) 01/06/21 16:10 01/06/21 Imaging and Studies Imaging and Studies EKG Summary: 02/19: Conclusion Sinus bradycardia...rate< 60 Prolonged TX interval...TX >210, V-rate 50- 90 ST elev, probable normal early repol pattern...ST elevation Stress Test Summary: 2014: negative for ischemia. Echocardiogram Summary: 07/2014: LVEF 60-65%, mild MR, LA/RA mild dilation, normal RVFxn. Other Study Summary:: holter: SR with OVC - 600 /hr. Anesthesia Assessment and Plan Anesthesia History Personal History: No History of Anesthesia Complications Family History: No Family History of Anesthesia Complications Exercise Tolerance Exercise Tolerance: Metabolic Equivalents>4 Pertinent Negatives Pertinent Negatives: No Symptoms of GERD, No Major Cardiovascular Symptoms or Complaints, No Major Pulmonary Symptoms or Complaints and No History of CVA/TIA Cardiac & Pulmonary Exam Cardiac Exam: Normal S1/S2 Heart Sounds Pulmonary Exam: Clear Bilateral Breath Sounds Cardiac and Pulmonary Comment:: Sleep apnea, unable to tolerate CPAP Airway Exam Known Difficult Airway: No Mallampati Class: 2 Mouth Opening: Normal (> 3cm) Thyromental Distance: Greater than 3 cm Neck Range of Motion: Full ROM Neck Circumference: Normal Teeth Condition: Normal Dentition ASA Classification ASA Score: ASA 2 Emergency Case?: No NPO Status NPO Status: NPO Clears >2 hours, Solids >8 hours Anesthesia Plan Resuscitation Status: Full Code Anesthesia Technique: General Anesthesia Airway Planned: Endotracheal Tube Pain Management: Surgeon and patient request nerve block Monitors Used: Standard Monitors Preoperative Comments:: 50 yo male for radial head fracture/replacement after a fall from 25-30 ft. PMHx significant for + smoker 2 per day, every day EtOH. Denies any major cardiac, renal, neuro, liver, pulmonary issues. Plan for GA/ETT with supraclav block.
[2021-01-11] MEDS: Lactated Ringers 1,000 ML 100 ML IV (08:52)
--- NOTE | 2021-01-11 11:00 | DI.RAD_ITS ---
Exam(s) XR ELBOW LT LIMITED EXAM: XR ELBOW LT LIMITED CLINICAL HISTORY: LEFT ELBOW RADIAL HEAD REPLACEMENT. TECHNIQUE: 2D and realtime digital imaging was performed. COMPARISON: CR XR ELBOW LT LIMITED from 01/08/2021 CR XR ELBOW LT LIMITED from 01/08/2021 FINDINGS: Fluoroscopy was provided for Dr. Walls in the OR. Hard copy images show resection of the fracture fr agments from the radial head and placement of a radial head prosthesis. The alignment appears satisf actory. Please see procedure note for details. Fluoro time 163.3 seconds RADIATION DOSE DELIVERED: angeline Estrada=5.9 mGy
--- NOTE | 2021-01-11 11:00 | W.ANESNERVE ---
Nerve Block Single Injection Procedure Date and Time Date Performed: 01/11/21 Procedure Start: 10:50 Location Where Procedure Performed Procedure Location: PACU Reason Performed: Postoperative Analgesia Requesting Provider: Mumtaz Walls Timeout Performed Timeout Performed: Yes Monitoring Used ECG, Blood Pressure, SpO2 and ETCO2 Sterility Sterility: Hand Hygiene, Surgical Cap, Surgical Mask and Sterile Gloves Sedation Given During Procedure Sedation Given (Indicate Dose Given): Versed IV Dose:: 2 mg Patient Mental Status Patient Mental Status: Sedate with meaningful communication Nerve Block 1st Nerve Block: Laterality: Left Block Type: Supraclavicular Needle / Catheter Used: 100mm SonoPlex II Local Anesthetic Bolus (Indicate Dose Given): Lidocaine used for local infiltration of skin, Injected in 3-5ml increments after negative blood aspiration, Bupivacaine 0.5% Dose:: 20 mL and Exparel Dose:: 10 mL Additives (Indicate Dose Given): None Ultrasound: Sterile probe cover and gel used Ultrasound Image Saved?: Yes Nerve Stimulator: Not Used Paresthesia: None Procedure Tolerated: No Complications Procedure Outcome: Successful Performed By: Nathen Amador
[2021-01-11] MEDS: ceFAZolin 3,000 MG in Normal Saline 100 ML 200 MG IVPB (11:41)
--- NOTE | 2021-01-11 15:42 | W.PM.DSUDISC ---
Discharge Plan Disposition Patient Disposition: HOME Condition: Stable Discharge Details Reason For Visit: Left elbow surgery Attending Provider: Mumtaz Walls Primary Care Provider: Nayeli Rios V Home Meds and New Rx's Prescriptions: Continued oxycodone 5 mg tablet 5 - 10 mg PO Q4H MDD 60mg PRN (Reason: pain, severe) Qty: 22 RF: 0 naproxen 250 mg tablet 250 - 500 mg PO BID PRN (Reason: pain, moderate) Qty: 60 RF: 0 valacyclovir [Valtrex] 500 MG tablet 500 mg PO PRN PRNRF: 0 Discontinued hydromorphone [Dilaudid] 2 mg tablet 2 mg PO Q6H PRNQty: 10 RF: 0 Discharge Instructions Additional Instructions: Surgery: Left elbow radial head replacement and lateral ligament repair Activity: Non-weightbearing in splint at all times. Recommend elevation to minimize swelling and discomfort. Use sling when up or out of the home. May use hand lightly as needed. A physical therapy prescription will be provided separately in the office at follow-up. Prescriptions: Aspirin 81 mg take 1 daily to prevent a blood clot for 2 weeks Naproxen 250 mg take 1-2 every 12 hours with a meal as needed for moderate pain Oxycodone 5 mg take 1-2 every 4-6 hours as needed for severe pain You may use [id number] Tylenol (acetaminophen) as needed for mild pain. These pain medications may be taken all at once or in different combinations as needed. Also, recommend Colace (docusate) as a stool softener as surgery and pain medicine cause constipation. Dressings: Leave splint and dressing in place until follow-up. Keep clean and dry at all times. Plan to transition to hinged elbow brace at follow-up. Follow-up: 10-[address] Walls (01/23/21 at 11:30 AM) Let us know right away if you develop any redness, drainage, fevers, chest pain, or trouble breathing. Do not drink alcohol or drive for at least 24 hours after anesthesia. Please call the office during business hours with any questions or concerns. Referrals: Mumtaz Walls MD [ [facility]FF [facility]YSICIAN] - Discharge Orders Discharge Orders: Discharge Order (Routine); Ordered 01/11/21 Ordered By: Mumtaz Walls DS: Diagnosis Discharge Diagnosis (1) Left radial head fracture: Status: Acute (2) Closed fracture dislocation of elbow: Status: Acute
--- NOTE | 2021-01-11 15:52 | W.ANESPOSTOP ---
Postoperative Evaluation Date, Time and Location Date Performed: 01/11/21 Time Performed: 15:52 Patient Location: PACU Vital Signs Most Recent Imported Vital Signs: Most Recent Vital Signs Temp Pulse Resp BP Pulse Ox 36.7 C 69 17 103/54 L 95 01/11/21 15:35 01/11/21 15:35 01/11/21 15:35 01/11/21 15:35 01/11/21 15:35 Pain Score Most Recent Pain Score: Most Recent Pain Score Pain Level 0 01/11/21 15:35 Assessment Mental Status: Awake (Alert & Oriented to Patient Baseline) Airway and Respiratory Function: Patent airway with normal (patient baseline) respiratory exam Cardiovascular Function: Hemodynamically Stable Hydration Status: Adequately Hydrated Nausea & Vomiting: No Nausea or Vomiting Pain: Pt. Denies Any Pain Peripheral Nerve Block: Regional nerve block not resolved at time of post operative discharge
--- NOTE | 2021-01-11 16:34 | ROE_ITS ---
Date of service: 01/11/21 Time of Service: 15:42 Operative Note Operative Note DATE OF PROCEDURE: 01/11/21 PRE-OP DIAGNOSIS: Left elbow radial head fracture dislocation POST-OP DIAGNOSIS: same PROCEDURE: Left elbow: 1. Radial head replacement, CPT# 45105 2. Lateral collateral ligament repair, CPT# SURGEON: Mumtaz Walls MAINTENANCE INSPECTOR: Elizabeth Baltazar MAINTENANCE INSPECTOR: Nayeli Banegas ANESTHESIA TYPE: Local By Surgeon, General LMA/ETT and Primary Nerve Block Refer to Anesthesia Record ESTIMATED BLOOD LOSS: 20 PATHOLOGY: none sent TOURNIQUET TIME: 0 COMPLICATIONS: None Patient was transported to: PACU Patient's condition: stable Implants: Synthes radial head replacement system size 25 mm diameter, 14 mm height, 7.5 mm stem Arthrex 4.75 swivel lock suture anchor Indications: Please see complete medical record for details. Findings: Unstable elbow fracture dislocation involving highly comminuted displaced radial head fracture with significant lateral ulnar collateral ligament, radial collateral ligament and common extensor origin disruption from the lateral epicondyle. Hemorrhagic synovitis and loose bodies in the ulnohumeral joint. No coronoid fracture. Soft tissue stripping palpated across the joint about the medial elbow however no significant valgus medial ulnohumeral opening. Unstable elbow past 20 degrees of extension especially with a varus moment and supination. Procedure Description: In the operating room, general anesthesia was induced. The patient was positioned supine on the operating room table. All bony prominences were well-padded. Preoperative antibiotics were administered. The left elbow was prepped and draped in the usual sterile fashion. The correct patient, procedure, and side of the procedure were all verified prior to incision. 15 cc of 0.5% bupivacaine containing epinephrine was infiltrated about the planned lateral incision. An incision was made from slightly proximal to the l ateral epicondyle ending slightly distal to the radial neck. Sharp dissection was carried through subcutaneous tissue. There was significant underlying soft tissue and muscle disruption. The extensor fascia was opened sharply in line with the planned posterior lateral approach revealing significant hematoma and fracture fragments. Care was taken to collect the bone fragments of the radial head and remove the larger fragments for assembly on the back table for radial head sizing. The wound was copiously irrigated and all visible chondral synovial and bone fragments removed. Inspection revealed bare area about the lateral epicondyle, which was devoid of radial collateral, lateral ulnar collateral, and common extensor origin attachments. The common extensor origin was slightly retracted distally likely containing the ECU and EDC with the more proximal and medial tendons attach higher lateral condyle. The annular ligament and capsule was also stripped about the highly comminuted displaced fracture area. The capsule was reflected and tagged for later repair about the annular ligament. The ulnohumeral joint was subluxated and additional hemorrhagic synovitis and chondral and bone fragments flushed and removed from the ulnohumeral joint. The medial ulnohumeral joint was digitally palpated with some stripping appreciated of the medial collateral ligament. The conoid was palpated and devoid of fracture and capsule appeared appropriately attached farther down from the tip. The articular cartilage was inspected of the ulnohumeral joint and capitellum did not reveal any significant osteochondral injury. The olecranon was palpated in the triceps origin without significant pathology. The avulsed extensor tendons fascia was then split distally to allow for retraction of the proximal lateral ulna. The lateral ulnar collateral ligament was identified and tagged. It demonstrated proper excursion to the small amount of remnant tissue on the lateral epicondyle. The radial head bone fragments were reconstructed on the sizing dish and the main fragments demonstrated an outer diameter greater than the largest 25 mm size which was more similar to the inner diameter. Height determination was difficult given the obliquity of the head neck fracture and the comminuted pieces available, but was between 11 and 15 mm. Retractors were gently used to deliver the radial head up as well as varus and extension elbow positioning. The fracture was obliquely oriented so a rongeur was used to clean up the fracture minimizing bone removal to just past the head neck junction. The center of the canal was then sounded starting with the 4.5 mm sounder and advancing up to the 7.5 mm sounder which had appropriate intramedullary contact. The planer was attached to this sounder and the planar used to smooth the rongeur and fracture neck cut and establishing a more perpendicular base for the implant while avoiding removal of excessive bone. The 25 mm radiolucent trial was inserted with the +0 11 mm height. This was undersized with significant laxity and gapping of the radial capitellar joint and lateral elbow. The next size up +3 mm spacer was added and this demonstra rene more appropriate radiocapitellar contact, while still allowing the implant to rotate axially and in the radial canal. The +6 mm spacer was then trialed but clearly was overstuffed with too much radiocapitellar contact stress and an incongruent medial ulnohumeral space. The +6 mm spacer was reinserted to the trial. Carefully scrutinized AP and lateral fluoroscopy in multiple positions showed the radiolucent trial about even with the sigmoid notch and coronoid with a congruent medial and lateral ulnohumeral joint. There was still significant subluxation of this component without any ligament repair in supination with any varus moment or elbow extension. The lateral ulnar collateral ligament demonstrated appropriate excursion as well as the common extensor tendons to the lateral epicondyle without undue stress. The annular ligament tag stitches could be closed about this trial size as well. The trial components were removed. The elbow was copiously irrigated. Once again the ulnohumeral joint was subluxated and irrigated and a small amount of additional hemorrhagic loose synovitis removed. The radial head replacement was then inserted without difficulty. There was appropriate motion at the implant bone interface. The ulnohumeral joint was then concentrically reduced. The elbow was taken through motion without undue radiocapitellar contact stress and no block to prone no supination going into deep flexion and extension until about 20 degrees short of full extension when the ulnohumeral joint subluxated posteriorly. The radiocapitellar joint actually remained well aligned. The elbow was positioned for multiple AP and lateral views showing appropriate congruent medial and lateral ulnohumeral joint. The implant was maybe 1 mm longer than the sigmoid notch, but this was scrutinized and felt to be due to obliquity of the x-rays relative to this prosthesis as the coronoid and ulnohumeral joint was otherwise very appropriate. Any further downsizing would have led to undue instability. The medial joint was stable to valgus stress with physiologic gapping on x-ray and closing with slight gap at the radiocapitellar joint with varus. The isometric point on the lateral epicondyle was located and cleared of the minimal amount of soft tissue remaining and this location confirmed on lateral fluoroscopy. The 3.5 mm small frag drill was then drilled aiming in the center of the distal humerus to avoid cortical perforation and to the appropriate depth about 21 mm for a swivel lock anchor. The swivel lock tap was then used to open the hard bone. The lateral ulnar collateral ligament was then secured using suture tape in a Krak?w fashion and the suture tails brought to the proposed anchor location. The elbow was brought through range of motion and the ligament demonstrated excellent isometry. These sutures were loaded through the eyelet of a 4.75 swivel lock anchor which was secured to bone maintaining appropriate tension on LUCL with the elbow reduced. The annular ligament and capsule was then closed over the implant using suture tape. A jyuufe-lw-mdrox suture tape was then used to close the fascial opening the muscle over the radial neck. The repair and elbow were tested through range of motion. There is excellent reduction and stability of the ulnohumeral and radiocapitellar joint and full prone no supination into deep flexion and coming into extension as long as a varus moment was avoided. A varus moment allowed some subluxation of ulnohumeral joint in about 45 degrees of flexion. Without this stress or significant supination, the elbow maintained reduce to about 20 degrees flexion, which was felt to be appropriate. Additional x-rays were obtained showing stability through range of motion. Lateral ligament and capsule repair demonstrated excellent strength and even tolerated varus stress in extension without elbow dislocation but some subluxation, which was not additionally vigorously tested. Both FiberWire sutures in the anchor were then used to reoppose and repair the common extensor tendon injury using a free needle and deep to superficial [id number]-[id number] fashion over the anchor. The wound was copiously irrigated normal saline. 0 Vicryl was then used to finish closing the opening in the extensor fascia distally as well as repair and close laterally and proximally. 2-0 Monocryl was then used to close subcutaneous tissue in an interrupted fashion. 3-0 Monocryl was used to close skin in a buried running fashion. Skin glue followed by Mepilex bandage were applied over the incision. Sterile soft roll was wrapped about the elbow. The elbow was positioned in neutral rotation and 9 degrees of flexion. Lateral fluoroscopy confirmed appropriate elbow reduction. Appropriate padding and molded plaster posterior long-arm splint with sidebar was then applied to the extremity and overwrapped with Jassi bandage. Final lateral fluoroscopy confirmed appropriate radiocapitellar and ulnohumeral joint elbow reduction in this final position. The patient awoke from anesthesia without complication and was transferred to the recovery room in a stable condition.
== END 2021-01-11 16:57 | disposition home or self-care (01) ==
PROVIDERS: PCP Family Medicine; Visit Provider Student in an Organized Health Care Education/Training Program
PROC: (CPT 24130; principal; 2021-01-11 11:30)
DX: S52.122A Displaced fracture of head of left radius, initial encounter for closed fracture (principal); W19.XXXA Unspecified fall, initial encounter; F17.210 Nicotine dependence, cigarettes, uncomplicated; S53.32XA Traumatic rupture of left ulnar collateral ligament, initial encounter
CPT/HCPCS: 24366; 24343; 73070; J0690; J1100; J1885; J2001; J2250; J2370; J2405; J2704

== ENCOUNTER 2021-01-23 12:01 | Outpatient (CLI) | payer BC, SELFPAY ==
--- NOTE | 2021-01-23 12:00 | DI.RAD_ITS ---
Exam(s) XR ELBOW LT LIMITED EXAM: XR ELBOW LT LIMITED CLINICAL HISTORY: follow up. TECHNIQUE: 2D digital imaging was performed. COMPARISON: CR XR ELBOW LT LIMITED from 01/08/2021 FINDINGS: Single lateral view of the left elbow reveals newly placed radial head prosthesis. This appears to b e in satisfactory position, realized limitations of a single view study. IMPRESSION: DATA REPOSITORY: RADIATION DOSE DELIVERED:
== END 2021-01-23 12:02 | disposition home or self-care (01) ==
LOC: DIORS 12:02
PROVIDERS: PCP Family Medicine; Referring Provider Family Medicine; Visit Provider Physician Assistant Surgical
DX: S52.122D Displaced fracture of head of left radius, subsequent encounter for closed fracture with routine healing (principal); Z96.622 Presence of left artificial elbow joint
CPT/HCPCS: 73070

== ENCOUNTER 2021-02-05 14:18 | Outpatient (CLI) | payer BC, SELFPAY ==
--- NOTE | 2021-02-05 14:00 | DI.RAD_ITS ---
Exam(s) XR WRIST LT LIMITED EXAM: XR WRIST LT LIMITED CLINICAL HISTORY: wrist pain. TECHNIQUE: 2D digital imaging was performed of the left wrist. Two images were obtained. PA and la teral views were obtained. COMPARISON: No previous for comparison. FINDINGS: BONES: No acute fracture is present. No bony destructive lesion is seen. JOINTS: The carpal bones are normally aligned. SOFT TISSUE: There are 4 punctate densities in the soft tissues at the lateral wrist. IMPRESSION: Four punctate densities in the soft tissues lateral to the wrist. They may represent foreign bodies. Please correlate clinically. DATA REPOSITORY: RADIATION DOSE DELIVERED:
--- NOTE | 2021-02-05 14:15 | DI.RAD_ITS ---
Exam(s) XR WRIST RT LIMITED EXAM: XR WRIST RT LIMITED CLINICAL HISTORY: right wrist pain. TECHNIQUE: 2D digital imaging was performed of the right wrist. Two views were obtained. PA and lat eral views were obtained. COMPARISON: No exams were available for comparison FINDINGS: BONES: No acute fracture is present. No bony destructive lesion is seen. There is a well corticated 3 mm density at the posterior aspect of the radiocarpal joint seen on the lateral view. This may repr esent an old injury. JOINTS: The carpal bones are normally aligned. SOFT TISSUE: Normal. IMPRESSION: 1. No acute abnormality. 2. 3 mm well corticated old osseous fragment at the dorsum of the wrist. DATA REPOSITORY: RADIATION DOSE DELIVERED:
== END 2021-02-05 14:19 | disposition home or self-care (01) ==
PROVIDERS: PCP Family Medicine; Referring Provider Family Medicine; Visit Provider Student in an Organized Health Care Education/Training Program
DX: M25.532 Pain in left wrist (principal); M25.531 Pain in right wrist; R93.6 Abnormal findings on diagnostic imaging of limbs
CPT/HCPCS: 73100

== ENCOUNTER 2021-02-21 16:19 | Outpatient (REF) | payer BC, SELFPAY ==
[2021-02-21 19:32] LABS: BUN 23 mg/dL (7-18); CREATININE 1.2 mg/dL (0.70-1.30); Calcium 9.3 mg/dL (8.5-10.1); Chloride 105 mmol/L (98-107); Glucose 90 mg/dL (74-106); Potassium 4.4 mmol/L (3.5-5.1); Sodium 142 mmol/L (136-145)
[2021-02-22 17:12] LABS: PSA, Screening 0.4 ng/mL (0.0-3.5)
[2021-02-25 12:01] LABS: Varicella IgG Antibody Positive (See Note)
== END 2021-02-21 16:20 | disposition home or self-care (01) ==
LOC: NCHCN 16:19
PROVIDERS: PCP Family Medicine; Visit Provider Family Medicine
DX: N28.9 Disorder of kidney and ureter, unspecified (principal); Z00.00 Encounter for general adult medical examination without abnormal findings
CPT/HCPCS: 80048; 84153; 86787

== ENCOUNTER 2021-03-05 14:12 | Outpatient (CLI) | payer BC, SELFPAY ==
--- NOTE | 2021-03-05 13:45 | DI.RAD_ITS ---
Exam(s) XR ELBOW LT COMPLETE EXAM: XR ELBOW LT COMPLETE CLINICAL HISTORY: elbow fx f/u TECHNIQUE: COMPARISON: CR XR ELBOW LT LIMITED from 01/23/2021 FINDINGS: Three views were obtained and show radial prosthesis in place. Alignment appears essentially unchang ed in comparison with prior examination January 23. IMPRESSION: RADIATION DOSE DELIVERED: Total DLP
== END 2021-03-05 14:13 | disposition home or self-care (01) ==
LOC: DIORS 14:13
PROVIDERS: PCP Family Medicine; Referring Provider Family Medicine; Visit Provider Student in an Organized Health Care Education/Training Program
DX: S42.402D Unspecified fracture of lower end of left humerus, subsequent encounter for fracture with routine healing (principal); W14.XXXD Fall from tree, subsequent encounter
CPT/HCPCS: 73080

== ENCOUNTER → 2022-03-28 00:23 | Outpatient (CLI) | payer BC, SELFPAY ==
--- NOTE | 2022-03-28 | DI.MAMMO_ITS ---
Exam(s) MG MAMMO DIAGNOSTIC BI US BREAST LT LIMITED EXAM: US BREAST LT LIMITED CLINICAL HISTORY: LT BREAST LUMP, N63.0 TECHNIQUE: Ultrasound performed using standard protocol. COMPARISON: No exams were available for comparison FINDINGS: Mammogram and left breast ultrasound are interpreted in conjunction. The patient has a palpable abno rmality in the 7 o'clock position in the left breast approximately 3 cm from the nipple. There are n o significant mammographic findings in this region, nor are there mammographic findings elsewhere in either breast to suggest the presence of malignancy. There is no mass or clumped microcalcification. Left breast ultrasound shows a well-circumscribed horizontally oriented homogeneous echogenic nodule measuring about 7 millimeters in greatest diameter, the appearance is consistent with a lipoma and th is would also be consistent with the lack of visualization of this nodule on the mammogram. No suspi cious findings on left breast ultrasound. IMPRESSION: Findings as discussed above are consistent with an intramammary lipoma. Clinical follow-up recommend ed, repeat exam could be obtained if there is interval growth but otherwise no imaging follow-up is r ecommended. BI-RADS Cat 2 - Benign Findings DATA REPOSITORY:
--- OUTSIDE RECORDS SUMMARY | 2022-03-28 00:33 | XMS_ITS | Encounter Summary ---
:1970 Author Organization [facility] Address [address] [place] [address] Care Team Providers Name Role Phone Unavailable Primary Care Provider Unavailable Encounter Details Date Type Department Care Team Description 07/22/2019 Lab Requisition [facility] Galicia En counter for other Pathology & D, general examination Laboratory Medicine - [address], [place] [address] [facility] [id number] [place], [place] [id number] Social History Tobacco Use Types Packs/Day Years Used Date Smoking Tobacco: Never Assessed Sex Assigned at Date Recorded Not on file documented as of this encounter Plan of Treatment Not on filedocumented as of this encounter Procedures Procedure Name Priority Date/Time Associated Diagnosis Comme nts COVID-19 TESTING Today 07/19/2019 12:30 Encounter for other Results for this EDT general examination procedur e are in the results section. documented in this encounter Results COVID-19 TEST STATE LAB (07/19/2019 12:30 EDT) [facility] Method Time Signature COVID-19 Not Detected Not Detected 07/24/2019 [place] Result 11:12 EDT [facility] Specimen Anatomical Location Collection Method Collection Time Received Time (Source) / Laterality / Volume Swab ENTIRE NASOPHARYNX 07/19/2019 12:30 07/21 / Unknown EDT 19:42 EDT Shaw Galicia MD MICROBIOLOGY - GENERAL ORDER LEATHA Performing Organization Address City/State/ZIP Code Phon e Number [facility] [address] [place], [place] [address] LABORATORY documented in this encounter Visit Diagnoses Diagnosis Encounter for other general examination documented in this encounter
--- OUTSIDE RECORDS SUMMARY | 2022-03-28 00:33 | XMS_ITS | Encounter Summary ---
:1970 Author Organization [facility] [place] [address] Care Team Providers Name Role Phone Shasta Riely APRN Primary Care Provider Encounter Details Date Type Department Care Team Description 2021 Ancillary Procedure Radiology Library at [facility] [address] [address] [place] [address] [phone] Social History Tobacco Use Types Packs/Day Years Used Date Smoking Tobacco: Former Sex Assigned at Date Recorded Not on file documented as of this encounter Plan of Treatment Not on filedocumented as of this encounter Procedures Procedure Name Priority Date/Time Associated Diagnosis Comme nts FILM LIBRARY Routine 2021 12:00 AM Results for this STORAGE ONLY DX EDT procedure ar e in WRIST the results section. documented in this encounter Results Film Library- Storage Only DX Wrist (2021 12:00 AM EDT) Specimen (Source) Anatomical Location Collection Method / Collectio n Time Received Time / Laterality Volume Narrative JOANNE - 04/03/2021 2:03 PM EST This exam is auto-finalizing. It's purpo se is for storage only. Nayeli Rios MD [facility] FILM LIBRARY ORDERABLES Performing Organization Address City/State/ZIP Code Phon e Number [place], [place] documented in this encounter Visit Diagnoses Not on filedocumented in this encounter Care Teams Relocation Services Specialist Relationship Specialty Start Date End Date Shasta Riley APRN PCP - General 03/25/11 03/04/21 documented as of this encounter
--- OUTSIDE RECORDS SUMMARY | 2022-03-28 00:33 | XMS_ITS | Clinical Summary ---
:1970 Author Organization [facility] [place] [address] Care Team Providers Name Role Phone Nayeli Rios MD Primary Care Provider Allergies No known active allergies Medications Medication Sig Dispensed Refills Start Date End Date Status valACYclovir (VALTREX) Take 500 mg by 0 Active 500 mg tablet mouth daily as needed. aspirin EC 81 mg Tablet, Take 81 mg by 0 Active Delayed Release (E.C.) mouth daily. acetaminophen (Tylenol) Take 1,000 mg by 0 Active 500 mg Tablet mouth every 6 hours as needed for Pain. Active Problems Problem Noted Date Plantar Wart 06/06/2011 Nevus 06/06/2011 Social History Tobacco Use Types Packs/Day Years Used Date Smoking Tobacco: Former Smokeless Tobacco: Never Sex Assigned at Date Recorded Not on file Plan of Treatment Health Maintenance Due Date Last Done Comments Hepatitis B vaccine (0-59 yrs) (1 of 3 - 3-dose series) 02/05/19 71 Covid-19 Vaccine (#1) 1970 HIV screen 1989 Hepatitis C Screening 1989 Lipid Screening 1989 Tdap adult 1990 Tetanus vaccine 1990 Colonoscopy 02/06/2016 Zoster vaccine (1 of 2) 2021 Influenza (Flu) vaccine (1 of 1 - Influenza standard 01/02/2022 series) Insurance Payer Benefit Plan / Subscriber ID Effective Dates Phone Addre ss Type Group [employer] [place] [id number] 2020-Present [address] [place] [address] [id number] (Home) [facility] [phone] Shari HERNANDEZ (Work) [phone] Care Teams Boot [employer] Saddle Repair Person Relationship Specialty Start Date End Date Nayeli Rios MD PCP - General Family Medicine 03/05/21 [address] [place], [place] [id number]
--- OUTSIDE RECORDS SUMMARY | 2022-03-28 00:33 | XMS_ITS | Encounter Summary ---
:1970 [place] [address] Care Team Providers Name Role Phone Shasta Riley APRN Primary Care Provider Encounter Details Date Type Department Care Team Description 01/07/2021 Ancillary Procedure [facility] Formerly [facility] [place] [address] GENERAL SURGERY [phone] [place], [place] [address] (Wo rk) Social History Tobacco Use Types Packs/Day Years Used Date Smoking Tobacco: Former Sex Assigned at Date Recorded Not on file documented as of this encounter Plan of Treatment Not on filedocumented as of this encounter Procedures Procedure Name Priority Date/Time Associated Diagnosis Comme nts FILM LIBRARY Routine 01/07/2021 12:26 AM Results for this STORAGE ONLY DX EDT procedure ar e in ELBOW the results section. documented in this encounter Results Film Library- Storage Only DX Elbow (01/07/2021 12:26 AM EDT) Specimen (Source) Anatomical Location Collection Method / Collectio n Time Received Time / Laterality Volume Narrative RAD - 01/07/2021 12:26 AM EDT This exam is auto-finalizing. It's purpo se is for storage only. Keith Blevins MD Kadie FILM LIBRARY ORDERABLES Performing Organization Address City/State/ZIP Code Phon e Number [facility] [place] documented in this encounter Visit Diagnoses Not on filedocumented in this encounter Care Teams Library Serials Assistant Relationship Specialty Start Date End Date Shasta Riley APRN PCP - General 03/25/11 03/04/21 documented as of this encounter
--- OUTSIDE RECORDS SUMMARY | 2022-03-28 00:33 | XMS_ITS | Encounter Summary ---
:1970 Author Organization [facility] Address [address] [place] [address] Care Team Providers Name Role Phone Unavailable Primary Care Provider Unavailable Encounter Details Date Type Department Care Team Description 02/22/2021 Lab Requisition [facility] Outr Resulting Lab, Pathology & Laboratory Provider [facility] [address] [place] [address] Social History Tobacco Use Types Packs/Day Years Used Date Smoking Tobacco: Never Assessed Sex Assigned at Date Recorded Not on file documented as of this encounter Plan of Treatment Not on filedocumented as of this encounter Procedures Procedure Name Priority Date/Time Associated Comments Diagnosis VARICELLA IGG Routine 02/21/2021 15:50 Results fo r this ANTIBODY EDT procedure are i n the results section. PSA TOTAL, Routine 02/21/2021 15:50 Results for this DIAGNOSTIC EDT procedure are i n the results section. documented in this encounter Results PSA TOTAL, DIAGNOSTIC (02/21/2021 15:50 EDT) P athologist Signature PSA 0.4 0.0 - 3.5 02/22/2021 [facility] ng/mL 17:08 EDT [facility] Specimen Anatomical Collection Method Collection Time Receive d Time (Source) Location / / Volume Laterality Blood VENOUS BLOOD / 02/21/2021 15:50 Unknown EDT 15:49 EDT Narrative [facility] - 02/22/2021 17:08 EDT NOTE: Serum PSA concentration should not be in terpreted as absolute evidence for the presence or absence of malignant disease. Assayed on Siemens ADVIA Centaur XPT usi ng chemiluminescent technology.??Values obtained by using different assay methods cannot be used interchangeably. Provider Outr Resulting Lab CHEMISTRY & BLOOD GAS MAUROE MARCE Performing Organization Address City/State/ZIP Code Phon e Number [facility] [address] [place] [address] SERVICES VARICELLA IGG ANTIBODY (02/21/2021 15:50 EDT) [facility] Signature Varicella IgG Positive See Note 02/25/2021 [facility] 11:55 EDT [facility] Comment: Presence of detectable Varicell a Zoster virus IgG antibodies. Specimen Anatomical Collection Method Collection Time Receive d Time (Source) Location / / Volume Laterality Blood VENOUS BLOOD / 02/21/2021 15:50 1 Unknown EDT 15:49 EDT Provider Outr Resulting Lab IMMUNOLOGY AND SEROLOGY OR DERABLES Performing Organization Address City/[facility]/ZIP Code Phon e Number [facility] [address] [place] [address] SERVICES documented in this encounter Visit Diagnoses Not on filedocumented in this encounter
--- OUTSIDE RECORDS SUMMARY | 2022-03-28 00:33 | XMS_ITS | Encounter Summary ---
:1970 Author Organization [facility] [place] [address] Care Team Providers Name Role Phone Shasta Riley APRN Primary Care Provider Encounter Details Date Type Department Care Team Description 01/11/2021 Ancillary Procedure Radiology Library at [place] [facility] [address] [address] [place] [address] [phone] Social History Tobacco Use Types Packs/Day Years Used Date Smoking Tobacco: Former Sex Assigned at Date Recorded Not on file documented as of this encounter Plan of Treatment Not on filedocumented as of this encounter Procedures Procedure Name Priority Date/Time Associated Diagnosis Comme nts FILM LIBRARY Routine 01/11/2021 12:00 AM Results for this STORAGE ONLY DX EDT procedure ar e in ELBOW the results section. documented in this encounter Results Film Library- Storage Only DX Elbow (01/11/2021 12:00 AM EDT) Specimen (Source) Anatomical Location Collection Method / Collectio n Time Received Time / Laterality Volume Narrative RAD - 04/03/2021 2:00 PM EST This exam is auto-finalizing. It's purpo se is for storage only. Nayeli Rios MD [facility] FILM LIBRARY ORDERABLES Performing Organization Address City/State/ZIP Code Phon e Number [place], [place] documented in this encounter Visit Diagnoses Not on filedocumented in this encounter Care Teams Internal Sales Engineer Relationship Specialty Start Date End Date Shasta Riley APRN PCP - General 03/25/11 03/04/21 documented as of this encounter
--- OUTSIDE RECORDS SUMMARY | 2022-03-28 00:33 | XMS_ITS | Encounter Summary ---
:1970 Author Organization [facility] [place] [address] Care Team Providers Name Role Phone Shasta Riley APRN Primary Care Provider Encounter Details Date Type Department Care Team Description 01/08/2021 Ancillary Procedure Radiology Library at [place] [facility] [address] [address] [place] [address] [phone] Social History Tobacco Use Types Packs/Day Years Used Date Smoking Tobacco: Former Sex Assigned at Date Recorded Not on file documented as of this encounter Plan of Treatment Not on filedocumented as of this encounter Procedures Procedure Name Priority Date/Time Associated Diagnosis Comme nts FILM LIBRARY Routine 01/08/2021 12:00 AM Results for this STORAGE ONLY DX EDT procedure ar e in ELBOW the results section. documented in this encounter Results Film Library- Storage Only DX Elbow (01/08/2021 12:00 AM EDT) Specimen (Source) Anatomical Location Collection Method / Collectio n Time Received Time / Laterality Volume Narrative JOANNE - 04/03/2021 1:54 PM EST This exam is auto-finalizing. It's purpo se is for storage only. Nayeli Rios MD [facility] FILM LIBRARY ORDERABLES Performing Organization Address City/State/ZIP Code Phon e Number [place], [place] documented in this encounter Visit Diagnoses Not on filedocumented in this encounter Care Teams Hi Teacher Relationship Specialty Start Date End Date Shasta Riley APRN PCP - General 03/25/11 03/04/21 documented as of this encounter
--- OUTSIDE RECORDS SUMMARY | 2022-03-28 00:33 | XMS_ITS | Encounter Summary ---
:1970 Author Organization [facility] Address [address] [place] [address] Care Team Providers Name Role Phone Nayeli Rios MD Primary Care Provider Reason for Visit Reason Comments Procedure EMG LUE Consultation (Routine) - Closed Specialty Diagnoses / Procedures Referred By Contact Refer red To Contact Pain Management Diagnoses EMG Left extremity; Lt Elbow pain Nino Garcia MD Forrest, Andrew I, MD [address] [place] [address] [address] [place] [address] [place] [address] Phone: Fax: Referral ID Status Reason Start Date Expiration Date Visits V isits Requested Authorized [id number] Closed Evaluate and 05/27/2021 05/27/2022 1 1 Treat PCP Updated and/or Approved Encounter Details Date Type Department Care Team Description 06/06/2021 Procedure visit Pain Management at Aayush Reyes pal tunnel Galina Berry MD syndrome on left [address] [place], [place] [address] [address] [place], [place] [phone] Social History Tobacco Use Types Packs/Day Years Used Date Smoking Tobacco: Former Smokeless Tobacco: Never Sex Assigned at Date Recorded Not on file documented as of this encounter Progress Notes Aayush Reyes MD - 06/06/2021 9:00 AM EST Chief Complaint Patient presents with ??? Procedure EMG TORITO Zhao is a 51 y.o. male who is referred by Nino Garcia for evaluation and EMG testing for complaints of Left upper extremity paresthesia. Symptoms have been present for several months. There are prior studies for review. Pertinent studiesinclude imaging of elbow, radial head replacement. He does not have a pacemaker in place. He has not had prior cervical/lumbar spinal surgery. He denies to latex allergy (non-latex gloves were used to do this procedure. He is not on oral anticoagulants. He does not have a spinal cord stimulator. He reports Pinky and ring fingers impacted by numbness/tingling first. Associated w/ pain in the elbow. No neck/shoulder pain. Seems to be random, no spec trigger to the numbness, nor how often it happens. Pain began when he broke his radial head suffering a fall while trimming trees. He reports that he has quit smoking. He has never used smokeless tobacco. Medical history: Negative aside from above. Family history: Non contributory. Social History: Please see above. Review of Systems: Constitutional Denies Fevers, Chills, night sweats HEENT Denies new hearing or vision problems or headaches. Cardiovascular Denies chest pain, palpitations. Respiratory Denies cough, SOB. GI Denies constipation, diarrhea, denies N/V, black stools. Denies dysuria, urinary retention. Musculoskeletal Denies other joint pains, see HPI. Neurologic Denies other loss of sensation, except as otherwise noted, see HPI for further details. Sleep is wnl. Psychiatric Describes mood as normal Denies suicidal ideation. Hematologic Denies anticoagulant use, easy bruising. Physical Exam: No data found. CONSTITUTION: Well nourished , well developed, no acute distress, well-tended appearance, appears about reported age, normal body habitus, no obvious deformities present HEAD: Cranium: Inspection: Atraumatic, normocephalic Face: Inspection: No facial lesions EYES: Conjunctiva: Conjunctiva normal Sclera: Sclera white Eyelids/Occular Adnexa: Eyelid appearance normal, no exudates present, eye moisture level normal EARS, NOSE, MOUTH, EARS: External Ears: Auricle appearance normal bilaterally, external auditory canal appearance within normal limits Hearing: intact to conversational voice both ears Nose: External nose: Appearance normal Oral Cavity: Lips: Lip appearance normal Tongue: Tongue appearance normal NECK: Neck: Normal appearance, no masses or tenderness, trachea midline Range of Motion: Range of motion within normal limits with normal function limits RESPIRATORY: Respiratory effort: Breathing unlabored Auscultation of Lungs: Clear with normal breathing sounds throughout, negative rales, wheezes or rhonchi CARDIOVASCULAR: Heart: Ausculation of Heart: Regular rate and rhythm, S1, S2, no murmurs, rubs or gallops GASTROENTEROLOGY: Abdominal Examination: Abdomen non tender to palpation, tone normal without rigidity or guarding, no masses present, abdominal contour scaphoid Lymphatic: Neck: No lymphadenopathy present MUSCULOSKELETAL: Tinel's sign right wrist and elbow negative Tinel's sign left wrist and elbow negative The patient's limb(s) were warmed to a normal temperature. Gait and Station: Normal gait and station SKIN AND SUBCUTANEOUS: General Inspection: Without rash or lesion NEUROLOGIC: Cranial Nerves: Cranial nerves 2-12 unremarkable Mental Status Examination: unremarkable Motor Examination: 5/5 strength in all four extremities in all muscle groups Reflexes: 2+ deep tendon reflexes symmetric, biceps, triceps, brachioradialis, knees and ankles bilaterally, down going toes bilaterally, Horne sign negative bilaterally Sensation: Normal sensation in all cervical and lumbosacral dermatomes, exam normal all four extremities PSYCHIATRIC: Mood and Affect: Mood normal. affect appropriate Assessment/Plan: Kalyan was seen today for procedure. Diagnoses and all orders for this visit: Carpal tunnel syndrome on left - EMG - 1 EXTR W/WO RELATED PARASPINAL; Future I reviewed EMG procedure in details. Patient understands and wishes to proceed. 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 See EMG report for further details. EMG, further f/u per Nino Garcia who referred the patient to me, thank you for allowing me to participate in the care of your patient. He is in agreement with the above plan. All of the patient's questions were answered and he was appreciative of today's visit. documented in this encounter Plan of Treatment Not on filedocumented as of this encounter Procedures Procedure Name Priority Date/Time Associated Diagnosis Comme nts EMG SCAN 06/06/2021 12:00 AM EST documented in this encounter Results SCAN DOC: EMG (06/06/2021 12:00 AM EST) Narrative This result has an attachment that is no t available. Unknown MEDIA MGR SCAN EXT ORDR/RSLT documented in this encounter Visit Diagnoses Diagnosis Carpal tunnel syndrome on left Carpal tunnel syndrome documented in this encounter Care Teams Skin Lap Bonder Relationship Specialty Start Date End Date Nayeli Rios MD PCP - General Family Medicine 03/05/21 [address] [place] [address] documented as of this encounter
--- OUTSIDE RECORDS SUMMARY | 2022-03-28 00:33 | XMS_ITS | Encounter Summary ---
:1970 Author Organization [facility] [place] [address] Care Team Providers Name Role Phone Shasta Rliey APRN Primary Care Provider Encounter Details Date Type Department Care Team Description 01/06/2021 Telephone Orthopaedics at [facility] Burton Miller, [facility] [place] [address] [facility] [phone] ORTHOPAEDIC SURG [place], [place] [address] (Wo rk) Social History Tobacco Use Types Packs/Day Years Used Date Smoking Tobacco: Former Sex Assigned at Date Recorded Not on file documented as of this encounter Miscellaneous Notes Telephone Encounter - Burton Miller MD - 01/06/2021 11:41 PM EDT Telephone Note I received a transfer center call about Mr. Kalyan Zhao from Brigid Johnson at [facility] today. Mr Zhao is a 50 year old male who fell 30 feet suffering a radial head fracture and elbow dislocation. Personal review of imaging shows a Wing type 4 injury with a comminuted radial head that is posteriorly displaced as well as dislocation of th elbow. The elbow was reduced by the ED provider at [facility] with persistent displacement of the radial head/neck seen on CT and XR. Patient was NVI per provider and had already been sent home at time of consult. I recommended patient follow up with Orthopedic surgeon foroperative discussion, at this time provider prefers follow up with Ortho at [facility]. I related we wouldbe happy to see them if there is a change in plan or [facility] ortho is not able to treat patient, and they will call us if they need us. documented in this encounter Plan of Treatment Not on filedocumented as of this encounter Visit Diagnoses Not on filedocumented in this encounter Care Teams Cement Railroad Car Loader Relationship Specialty Start Date End Date Shasta Riley APRN PCP - General 03/25/11 03/04/21 documented as of this encounter
--- OUTSIDE RECORDS SUMMARY | 2022-03-28 00:33 | XMS_ITS | Encounter Summary ---
:1970 Author Organization [facility] [place] [address] Care Team Providers Name Role Phone Nayeli Rios MD Primary Care Provider Encounter Details Date Type Department Care Team Description 03/05/2021 Ancillary Procedure Radiology Library at [place] [facility] [address] [address] [place] [address] [phone] Social History Tobacco Use Types Packs/Day Years Used Date Smoking Tobacco: Former Sex Assigned at Date Recorded Not on file documented as of this encounter Plan of Treatment Not on filedocumented as of this encounter Procedures Procedure Name Priority Date/Time Associated Diagnosis Comme nts FILM LIBRARY Routine 03/05/2021 12:00 AM Results for this STORAGE ONLY DX EDT procedure ar e in ELBOW the results section. documented in this encounter Results Film Library- Storage Only DX Elbow (03/05/2021 12:00 AM EDT) Specimen (Source) Anatomical Location Collection Method / Collectio n Time Received Time / Laterality Volume Narrative JOANNE - 04/03/2021 2:04 PM EST This exam is auto-finalizing. It's purpo se is for storage only. Nayeli Rios MD [facility] FILM LIBRARY ORDERABLES Performing Organization Address City/State/ZIP Code Phon e Number [place], [place] documented in this encounter Visit Diagnoses Not on filedocumented in this encounter Care Teams Superintendent Terminal Relationship Specialty Start Date End Date Nayeli Rios MD PCP - General Family Medicine 03/05/21 [address] [place] [address] documented as of this encounter
--- OUTSIDE RECORDS SUMMARY | 2022-03-28 00:33 | XMS_ITS | Continuity of Care Document ---
:1970 Author Organization [facility] Address [address] [facility] [address] [place] [address] Care Team Providers Name Role Phone Staff, Physician Not On Unavailable Unavailable Insurance Providers Payer Name Policy Number Subscriber Name Relationship Work Comp [id number] Kalyan Hansen Self/Same as Pat ient Advance Directives Directive Response Recorded Date/Time Does Patient Have Advance Healthcare Directive No 08/16/15 1:09pm Chief Complaint and Reason for Visit Chief Complaint ENT Reason for Visit Foreign body of right eye Problems Active Problems Medical Problem Onset Date Status Foreign body in eyeball, left Unknown Acute Foreign body of right eye Unknown Acute Medications No medication information available. Social History Query Response Start Date Stop Date Smoking Status Never A Smoker Hospital Discharge Instructions Instructions Demographic Information Patient's Ethnicity:: Not /Not Regulatory Preferred Language:: Smoking Status Smoking Status: Never A Smoker Height Height (Feet): 6 [1 - 10] Height (Inches): 3 Plan of Care Discharge Date 08/16/15 1:03pm Disposition Discharge Home Condition at Discharge Stable Instructions/Education Provided AFTERCARE Prescriptions See Medication Section Referrals Physician Not On Staff - Additional Instructions/Education [facility] up with [facility] , no ulceration / abrasion or foreign body not ed on the exam Functional Status Query Response Date Recorded Mental Status Oriented To Own Ability August 16, 2015 1 1:18am Allergies, Adverse Reactions, Alerts No known allergies. Immunizations No immunization records. Vital Signs Acute Vital Signs Vital Response Date/Time Temperature 98.4 degrees F (97.6 - 100.4) 08/16/2015 1:03pm Patient Temperature 36.28412 degrees C (36.4 - 38.0) 016 1:03pm Patient Temperature 36.77984 degrees C (36.4 - 38.0) 016 1:03pm Pulse Pulse Rate 56 bpm (60 - 100) 08/16/2015 1:03pm Respiratory Rate 15 breaths per min (12 - 20) 08/16/2015 1:03pm Bedside Pulse Oximetry 98 % (92 - 100) 08/16/2015 1:03pm Blood Pressure 118/77 mmHg 08/16/2015 1:03pm Height 6 ft 3 in 08/16/2015 11:16am Weight 212 lb 08/16/2015 11:16am Body Mass Index 26.69 08/16/2015 11:16am Results No known relevant diagnostic tests, laboratory data and/or discharge summary. Procedures No known history of procedures. Encounters Encounter Location Arrival/Admit Date Discharge/Depart Date Attending Provider Departed [place] - 08/16/15 10:31am 08/16/15 1:03pm [facility] [place] Recent Diagnosis
--- OUTSIDE RECORDS SUMMARY | 2022-03-28 00:33 | XMS_ITS | Encounter Summary ---
:1970 [place] [address] Care Team Providers Name Role Phone Shasta Riley APRN Primary Care Provider Encounter Details Date Type Department Care Team Description 01/06/2021 [facility] [place] [address] GENERAL SURGERY [phone] [place], [place] [address] (Wo rk) Social History Tobacco Use Types Packs/Day Years Used Date Smoking Tobacco: Former Sex Assigned at Date Recorded Not on file documented as of this encounter Plan of Treatment Not on filedocumented as of this encounter Procedures Procedure Name Priority Date/Time Associated Diagnosis Comme nts FILM LIBRARY Routine 01/06/2021 11:21 PM Results for this STORAGE ONLY CT EDT procedure ar e in UPPER EXTREMITY the results section. documented in this encounter Results Film Library- Storage Only CT Upper Extremity (01/06/2021 11:21 PM EDT) Specimen (Source) Anatomical Location Collection Method / Collectio n Time Received Time / Laterality Volume Narrative JOANNE - 01/06/2021 11:21 PM EDT This exam is auto-finalizing. It's purpo se is for storage only. Keith Blevins MD [facility] FILM LIBRARY ORDERABLES Performing Organization Address City/State/ZIP Code Phon e Number [facility] [place]NE [place] documented in this encounter Visit Diagnoses Not on filedocumented in this encounter Care Teams Tsa Screener Relationship Specialty Start Date End Date Shatsa Riley APRN PCP - General 03/25/11 03/04/21 documented as of this encounter
--- OUTSIDE RECORDS SUMMARY | 2022-03-28 00:33 | XMS_ITS | Encounter Summary ---
:1970 Author Organization [facility] [place] [address] Care Team Providers Name Role Phone Shasta Riley APRN Primary Care Provider Reason for Visit Reason Comments Skin Lesion Encounter Details Date Type Department Care Team Description 06/06/2011 Office Visit Dermatology Marcelino Canela, Plantar Wart (Primary Dx); [address] [facility] [address] [place] [address] [id number] [place] [id number] [phone] (Wo rk) Social History Tobacco Use Types Packs/Day Years Used Date Smoking Tobacco: Former Sex Assigned at Date Recorded Not on file documented as of this encounter Progress Notes Marcelino Canela MD - 06/06/2011 12:20 PM EST Problem: Skin lesions of concern. 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 He has a plantar wart on the palm of his right hand that he would like to have treated and also wonders about a lesion on the left nasal sidewall that has been there for 20 years. Occasionally it swells. He was told it was an ingrown hair. He would like to have it removed. The patient is referred today by Shasta Riley. Physical examination reveals a pleasant 41-year-old gentleman who has a 2mm hyperkeratotic papule between the second/third MCPs of the right hand in the palmar aspect consistent with a plantar wart. He has a nevus versus hemangioma 3mm in diameter on the left nasal sidewall present as diagrammed on the accompanying flow sheet. Assessment & Plan: Plantar wart right palmar hand. a. LN2 x3 applied to site. b. RTC if this does not bring resolution. Nevus versus hemangioma left nasal sidewall. a. After obtaining patient consent, the site was anesthetized and removed with shave biopsy. b. Base was electrodesiccated and curetted. Specimen was submitted for pathologic analysis. c. Wound care instructions and supplies given. d. RTC here p.r.n. Copy: DASH Llanos Pathology Addendum per [facility] 06/11/11 : Fibrous papule of the nose documented in this encounter Plan of Treatment Not on filedocumented as of this encounter Visit Diagnoses Diagnosis Plantar Wart - Primary Other specified viral warts Nevus Benign neoplasm of skin, site unspecifie d documented in this encounter Care Teams Baggage Handling Supervisor Relationship Specialty Start Date End Date Shasta Riley APRN PCP - General 03/25/11 03/04/21 documented as of this encounter
== END ==
PROVIDERS: PCP Family Medicine; Visit Provider Family Medicine
DX: N63.24 Unspecified lump in the left breast, lower inner quadrant (principal)
CPT/HCPCS: 76642; 77062; 77066; G0279

== ENCOUNTER 2022-09-15 11:23 | Day surgery (SDC) | payer BC, SELFPAY ==
--- NOTE | 2022-09-14 20:22 | W.PM.DSUDISC ---
Date of service: 09/15/22 Time of Service: 14:19 Discharge Plan Disposition Patient Disposition: Home Condition: Good Discharge Details Reason For Visit: Screening colonoscopy Attending Provider: Alverto Schwartz Primary Care Provider: Nayeli Rios V Home Meds and New Rx's Prescriptions: Continued acetaminophen 325 mg capsule 325 mg PO ONCE PRN valacyclovir [Valtrex] 500 MG tablet 500 mg PO PRN PRN ibuprofen 400 mg Tablet 400 mg cyclobenzaprine 5 mg Tablet 10 mg Discontinued polyethylene glycol 3350 17 gram/dose powder 238 g PO ONCE Qty: 238 0RF Rx Instructions: take per colonoscopy instructions bisacodyl [Dulcolax (bisacodyl)] 5 mg tablet,delayed release (DR/EC) 5 mg PO ONCE Qty: 4 0RF Rx Instructions: take per colonoscopy instructions Discharge Instructions Instructions: Colorectal Polyps (GEN) Additional Instructions: Tenderness, we were able to complete your colonoscopy today without any difficulty. I did remove 3 polyps. 2 of them were small, but the third was rather large. It will take about a week or so for me to get the official pathology report on the nature of the polyps. At the very least, you will need a colonoscopy in the next 3 years because of the size of the larger polyp. 1. If tolerated, consume a soft, low fiber diet for 1-2 days. 2[address] Do not drive, drink alcohol, operate machinery, make critical decisions, or do activities that require coordination or balance for 24 hours. 3. Because air was put into your colon during the procedure, expelling air from your rectum (passing gas or farting) is normal. 4. You may not have a bowel movement for 1-3 days because of the colonoscopy prep. This is normal. 5. Go directly to the emergency room if you notice any of the following: Develop chills (warm to touch), or if you have a thermometer and your temperature is above 101 Difficulty breathing or difficultly swallowing Persistent vomiting Severe abdominal pain, other than gas cramps Severe chest pain Black, tarry stools Any bleeding ? exceeding one tablespoon 6. Call your physician if the site where your intravenous was started becomes red, swollen, painful, and warm to touch. 7. Your physician has reviewed your pre-procedure medications. Please continue to take those medications as previously ordered. You will be given specific information/education regarding any changes to your medications before leaving. Activity:: Activity as Tolerated Diet:: As Tolerated Discharge Orders Discharge Orders: Discharge Order (Routine); Ordered 09/14/22 Ordered By: Alverto Schwartz DS: Diagnosis Discharge Diagnosis (1) Screening for colon cancer: Status: Acute Asessment and Plan: Follow-up on polypectomy pathology results
--- NOTE | 2022-09-14 20:24 | COLE_ITS ---
Date of service: 09/15/22 Time of Service: 14:20 Colonoscopy Report Date of procedure: 09/15/22 Pre-op diagnosis general: Screening colonoscopy Post-op diagnosis procedure note: other (Colorectal polyps) Procedure: Colonoscopy with polypectomy Surgeon: Alverto Schwartz Anesthesia Type: General:No Airway Estimated blood loss (mL): 15 Pathology: other (Polyps at 45 and 20 cm, rectal polyp) Complications: None Disposition: same day Indications: Kalyan is a 52 year old man in need of a screening colonscopy Prep: Miralax/Dulcolax Procedure Start Time: 13:32 Procedure End Time: 04:06 Retraction Time: 26 Findings: Colon polyps at 45 cm and 20 cm, large rectal Procedure Description: After the induction of monitored anesthetic care, and with the patient in left lateral decubitus position, I began by performing an external anorectal exam.? Perineum and skin were normal, as was the anal verge.? There was no evidence of external hemorrhoids.? Next, I performed a digital rectal exam.? I did not appreciate any abnormal findings.? Next, I advanced a colonoscope into the rectal vault.? I performed retroflexion.? This was normal.? Using insufflation, I then advanced the colonoscope beyond the rectal folds and into the sigmoid c olon before advancing towards the cecum. There was a large polyp in the rectum that was easy to navigate beyond. The quality of the prep was adequate.? The scope was noted to be in the cecum by identification of the ileocecal valve and appendiceal orifice.? I then began withdrawing the colonoscope using repeated irrigation as necessary for full evaluation of the colonic mucosa. Around 45 cm from the anal verge I identified a 0.25 cm polyp. ?It appeared sessile in character. ?I was able to remove this with a cold forcep polypectomy. ?I examined the site, and there was minimal bleeding. Similarly, a 0.25 cm sessile polyp was removed at 20 cm as well. This was also retrieved with cold forceps. Once this was completed, I continued to withdraw the scope and examine the remainder of the colonic mucosa.?Once the scope was withdrawn to the level of the rectum, great care was taken to examine portions of the rectal folds.? As previously mentioned, there was a 1.25 centimeter pedunculated polyp within the rectum. I removed this with cold snare polypectomy. There was minimal self- limited bleeding from the polypectomy site. Finally, the scope was withdrawn and the patient was brought to the same-day surgery recovery unit as the anesthetic wore off. ?The findings and instructions were shared with the patient prior to discharge.
[2022-09-15 12:42] VITALS: BP 115/82; PULSE 65; RESP 16; TEMP 36.5; O2SAT 99
[2022-09-15] MEDS: Lactated Ringers 1,000 ML 80 ML IV (13:05)
--- NOTE | 2022-09-15 13:14 | W.ANESPRE ---
General Info Date of Service Date Performed: 09/15/22 Height: 6 ft 2 in Weight: 97.239 kg Body Mass Index (BMI): 27.5 Surgical Procedure: Operation Date: 09/15/22 12:50 Proposed Procedure Side Surgeon p Colonoscopy Alverto Schwartz MD Meds Allergies and Home Medications Allergies Allergy/AdvReac Type Severity Reaction Status Date / Time prednisone AdvReac Severe extreme Verified 09/15/22 12:37 anger Home Medication Medication Instructions Recorded valacyclovir 500 mg tablet 500 mg PO PRN PRN 03/04/17 (Valtrex) acetaminophen 325 mg capsule 325 mg PO ONCE PRN 05/29/21 cyclobenzaprine 5 mg tablet 10 mg 09/15/22 ibuprofen 400 mg tablet 400 mg 09/15/22 Current Visit Medications: Current Medications Generic Name Dose Route Start Last Admin Trade Name Freq PRN Reason Stop Dose Admin Hyoscyamine Sulfate 0.125 mg 09/14/22 20:25 Hyoscyamine 0.125 Mg Sl/Oral/Chew SL 10/14/22 20:24 DIRECTED PRN Ringer's Solution 1,000 mls @ 80 mls/hr 09/15/22 06:00 09/15/22 13:05 IV 10/12/22 23:59 80 mls/hr INFUSION SOFIA Administration IV Miscellaneous Supplies 1 each 09/15/22 06:00 Iv Access IV 10/12/22 23:59 DIRECTED SOFIA Ondansetron HCl 4 mg 09/14/22 20:25 Ondansetron 4 Mg/2 Ml Vial IVP 10/14/22 20:24 Q4H PRN PRN Nausea / Vomiting Sodium Chloride 0 ml 09/15/22 06:00 Normal Saline Flush 10 Ml Syr IV 10/12/22 23:59 PRN PRN Sodium Chloride 0 ml 09/15/22 06:00 Normal Saline 10 Ml Vial IJ 10/12/22 23:59 DIRECTED PRN Sterile Water 0 ml 09/15/22 06:00 Water,Injection,Sterile 10 Ml Vial IJ 10/12/22 23:59 DIRECTED PRN PFSH Active Problems Active Problems: Problem Status Onset Code Screening for colon cancer Z12.11 Acute renal insufficiency N28.9 Cough R05.9 Heavy alcohol consumption Z78.9 Anxiety F41.9 Medical History Medical History Abnormal auditory perception (12/28/17) ACL (anterior cruciate ligament) tear Closed fracture dislocation of elbow (01/06/21) Daytime sleepiness (12/28/17) Episode of apnea (12/28/17) [place] fracture of left radius Fracture of thoracic spine H/O cold sores Right groin pain Skin lesion Smoker (12/28/17) Sprain of wrist, left Tongue lesion Surgical History Surgical History (Updated 09/15/22 @ 12:40 by Faina Melara) Hx of arthroscopic knee surgery L knee Left radial head fracture (01/06/21) 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 Tobacco Smoking/Tobacco Use Status: Current every day Tobacco Type: cigarettes Smoking cigarettes per day: 13 Alcohol Alcohol Intake: current Alcohol intake frequency: 3 or more drinks per day Alcohol type: beer Details: Consumes 6 beers/day Substance Use Substance use: Occasionally Substance use type: marijuana Details: alcohol: t-3, 12 beers, Marijuana: t-2, bowl Vital Signs and Lab Results Vital Signs Most Recent Vital Signs in EMR: Most Recent Vital Signs Temp Pulse Resp BP Pulse Ox 36.5 C 65 16 115/82 99 09/15/22 12:42 09/15/22 12:42 09/15/22 12:42 09/15/22 12:42 09/15/22 12:42 Lab Results Blood Type / Crossmatch: No Data to Display Complete Blood Count: No Data to Display Complete Metabolic Panel: No Data to Display Liver Function Panel: No Data to Display Coagulation Panel: No Data to Display Cardiac Panel: No Data to Display Arterial Blood Gas: No Data to Display Venous Blood Gas: No Data to Display Pancreas Panel: No Data to Display Thyroid Panel: No Data to Display Infectious Disease: No Data to Display Blood Cultures: No Data to Display Toxicology Panel: No Data to Display Imaging and Studies Imaging and Studies Study information below may be from another EMR and interpreted by another provider. Please see original notes in EMR for more complete details. EKG Summary: 02/19: Conclusion Sinus bradycardia...rate< 60 Prolonged DE interval...DE >210, V-rate 50- 90 ST elev, probable normal early repol pattern...ST elevation Stress Test Summary: 2014: negative for ischemia. Echocardiogram Summary: 07/2014: LVEF 60-65%, mild MR, LA/RA mild dilation, normal RVFxn. Other Study Summary:: holter: SR with OVC - 600 /hr. Anesthesia Assessment and Plan Anesthesia History Personal History: No History of Anesthesia Complications Family History: No Family History of Anesthesia Complications Exercise Tolerance Exercise Tolerance: Metabolic Equivalents>4 Pertinent Negatives Pertinent Negatives: No Symptoms of GERD, No Major Cardiovascular Symptoms or Complaints and No History of CVA/TIA Cardiac & Pulmonary Exam Cardiac Exam: Normal S1/S2 Heart Sounds Pulmonary Exam: Clear Bilateral Breath Sounds and Active Dry Cough Implantable Cardiac Device Does patient have a Pacemaker or an ICD?: No Airway Exam Known Difficult Airway: No Mallampati Class: 2 Mouth Opening: Normal (> 3cm) Thyromental Distance: Greater than 3 cm Neck Range of Motion: Full ROM Neck Circumference: Normal Teeth Condition: Normal Dentition ASA Classification ASA Score: ASA 2 Emergency Case?: No NPO Status NPO Status: NPO Clears >2 hours, Solids >8 hours Anesthesia Plan Resuscitation Status: Full Code Anesthesia Technique: General Anesthesia Airway Planned: Natural Airway Monitors Used: Standard Monitors
[2022-09-15 13:17] VITALS: BMI 27.5
--- NOTE | 2022-09-15 13:58 | BOWEL_PTH ---
PATIENT: Kalyan Zhao LOC: [facility] U#:[id number] AGE/SX: 52/M ROOM: RE09/15/[address]: Alverto Schwartz MD : 1970 BED: DIS: 09/15/2022 SPEC #: [id number] RECD: 09/15/22 16:22 STATUS: MUSA RE #: [id number] KVNG: 09/15/22 13:[address]: Alverto Schwartz DEPT: Surgical Specimen RECD BY: Brigid Pelletier ENTERED: 09/15/22 16:22 SP TYPE: Bowel OTHR DR: Nayeli Rios V Tissues: 1 - BIOPSY BOWEL 2 - BIOPSY BOWEL 3 - BIOPSY BOWEL Procedures: GROSS AND MICRO LEVEL 4 SPECIAL STAIN 1 Comments: [id number]
[2022-09-15 14:14] VITALS: BP 114/80; PULSE 54; RESP 16; TEMP 36.6; O2SAT 96
[2022-09-15 14:45] VITALS: BP 116/73; PULSE 58; RESP 18; TEMP 36.6; O2SAT 98
--- NOTE | 2022-09-15 15:18 | W.ANESPOSTOP ---
Postoperative Evaluation Date, Time and Location Date Performed: 09/15/22 Time Performed: 14:45 Patient Location: Day Surgery Unit Vital Signs Most Recent Imported Vital Signs: Most Recent Vital Signs Temp Pulse Resp BP Pulse Ox 36.6 C 58 L 18 116/73 98 09/15/22 14:45 09/15/22 14:45 09/15/22 14:45 09/15/22 14:45 09/15/22 14:45 Pain Score Most Recent Pain Score: Most Recent Pain Score Pain Level 0 09/15/22 14:45 Assessment Mental Status: Awake (Alert & Oriented to Patient Baseline) Airway and Respiratory Function: Patent airway with normal (patient baseline) respiratory exam Cardiovascular Function: Hemodynamically Stable Hydration Status: Adequately Hydrated Nausea & Vomiting: No Nausea or Vomiting Pain: Pt. Denies Any Pain Peripheral Nerve Block: Patient did not receive a nerve block
== END 2022-09-15 14:56 | disposition home or self-care (01) ==
PROVIDERS: PCP Family Medicine; Visit Provider Surgery
PROC: 0DJD8ZZ Inspection of Lower Intestinal Tract, Via Natural or Artificial Opening Endoscopic (ICD-10-PCS; CPT 45378; principal; 2022-09-15 12:45)
DX: Z12.11 Encounter for screening for malignant neoplasm of colon (principal); D12.8 Benign neoplasm of rectum; K63.89 Other specified diseases of intestine
CPT/HCPCS: 45385; 45380; 88305; 88312; J2704

== ENCOUNTER 2024-02-03 02:13 | Outpatient (CLI) | payer BC, SELFPAY ==
[2024-02-03 12:32] LABS: ALT 34 U/L (16-63); AST 27 U/L (15-37); Albumin 3.8 g/dL (3.4-5.0); Alkaline Phosphatase 81 U/L (46-116); Anion Gap 7.9 mmol/L (3-11); BUN 16 mg/dL (7-18); Bilirubin, Total 0.66 mg/dL (0.2-1.0); CO2 27.1 mmol/L (21.0-32.0); Calcium 9.1 mg/dL (8.5-10.1); Chloride 100 mmol/L (98-107); Estimated GFR 90.56 (mL/min/1.73m2); Glucose 90 mg/dL (74-106); Potassium 4.3 mmol/L (3.5-5.1); Sodium 135 mmol/L (136-145); Total Protein 7.1 g/dL (6.4-8.2)
[2024-02-03 19:29] LABS: PSA, Screening 0.3 ng/mL (<=3.5)
== END 2024-02-03 02:14 | disposition home or self-care (01) ==
LOC: LOS 02:13
PROVIDERS: PCP Family Medicine; Visit Provider Family Medicine
DX: Z12.5 Encounter for screening for malignant neoplasm of prostate (principal); Z00.00 Encounter for general adult medical examination without abnormal findings
CPT/HCPCS: 36415; 80053; 84153

== ENCOUNTER 2024-12-20 16:40 | Outpatient (REF) | payer BC, SELFPAY ==
[2024-12-20 15:42] LABS: HCT 46.6 % (40.0-50.0); HGB 15.6 g/dL (13.5-17.5)
[2024-12-20 16:31] LABS: ALT 36 U/L (16-63); AST 28 U/L (15-37); Albumin 4.0 g/dL (3.4-5.0); Alkaline Phosphatase 85 U/L (46-116); Anion Gap 9.9 mmol/L (3-11); BUN 16 mg/dL (7-18); Bilirubin, Total 0.7 mg/dL (0.2-1.0); CO2 28.1 mmol/L (21.0-32.0); Calcium 9.2 mg/dL (8.5-10.1); Calculated LDL 113 mg/dL (<100); Chloride 102 mmol/L (98-107); Cholesterol 190 mg/dL (<200); Estimated GFR 102.12 (mL/min/1.73m2); Glucose 93 mg/dL (74-106); HDL Cholesterol 69 mg/dL (>or=40); Potassium 4.6 mmol/L (3.5-5.1); Sodium 140 mmol/L (136-145); Total Protein 7.1 g/dL (6.4-8.2); Triglyceride 42 mg/dL (<150)
== END 2024-12-20 16:41 | disposition home or self-care (01) ==
LOC: NCHCN 16:40
PROVIDERS: PCP Family Medicine; Visit Provider Family Medicine
DX: F10.10 Alcohol abuse, uncomplicated (principal); Z13.220 Encounter for screening for lipoid disorders; Z13.0 Encounter for screening for diseases of the blood and blood-forming organs and certain disorders involving the immune mechanism
CPT/HCPCS: 80053; 80061; 85014; 85018

== ENCOUNTER 2025-01-17 15:01 | Outpatient (CLI) | payer BC, SELFPAY ==
--- NOTE | 2025-01-17 14:45 | DI.RAD_ITS ---
Exam(s) XR SHOULDER RT COMPLETE 2+V EXAM: XR SHOULDER RT COMPLETE 2+V CLINICAL HISTORY: RIGHT SHOULDER PAIN. TECHNIQUE: 2D digital imaging was performed of the right shoulder. Two images were obtained. Axillary and Grashey views were obtained. COMPARISON: No exams were available for comparison FINDINGS: BONES: No acute fracture is present. No bony destructive lesion is seen. There are small subchondral cysts seen in the acromion and the greater tuberosity. JOINTS: No dislocation present. SOFT TISSUE: Normal. IMPRESSION: No acute abnormality. The glenohumeral and acromioclavicular joints are well maintained. DATA REPOSITORY: RADIATION DOSE DELIVERED:
== END 2025-01-17 15:02 | disposition home or self-care (01) ==
LOC: DIORS 15:01
PROVIDERS: PCP Family Medicine; Visit Provider Student in an Organized Health Care Education/Training Program
DX: M25.511 Pain in right shoulder (principal)
CPT/HCPCS: 73030

== ENCOUNTER 2025-02-06 02:35 | Outpatient (CLI) | payer BC, SELFPAY ==
--- NOTE | 2025-02-06 07:45 | DI.MRI_ITS ---
Exam(s) MR UPPER JOINT RT WO EXAM: MR UPPER JOINT RT WO CLINICAL HISTORY: posterior shoulder soft tissue mass, pain M75.101 ROTATOR CUFF TEAR RUPTURE TECHNIQUE: Multiplanar multisequence MRI of the shoulder was performed. COMPARISON: CT CT CHEST LUNG CANCER SCREEN from 01/13/2025 CR XR SHOULDER RT COMPLETE 2+V from 01/17/2025 FINDINGS: MARROW:There is no evidence of fracture, Hill-Sachs deformity, nor ominous osseous lesions. GLENOHUMERAL JOINT: No large joint effusion nor obvious loose intra-articular bodies. No chondral defects. No osteophytes. No degenerative subarticular cysts evident in the osseous glenoid. A few small degenerative subarticular cysts are seen in the lateral humeral head-greater tuberosity region. ROTATOR CUFF MECHANISM: AC JOINT/ACROMIUM: There are mild-moderate degenerative changes in the AC joint.. There is no evidence of os acromiale. Supraspinatus: There is thickening and signal abnormality in the supraspinatus tendon consistent with tendinosis. This involves the entire thickness of the tendon starting 1 cm above the greater tuberosity. There is a tiny amount of fluid in the overlying subacromial-subdeltoid bursa. There is no muscle atrophy. Infraspinatus: Tendon also exhibits some insertional tendinosis signal at the conjoined tendon insertion level. No muscle atrophy evident Teres Minor: Intact. No evidence of tear nor muscle atrophy. Subscapularis/anterior cuff: There is linear signal abnormality in the multipennate insertional anterior cuff tendon anterior to the lesser tuberosity. Consistent with partial-thickness tearing although 1 of the sagittal fat sat images reveals what may be a thin linear full-thickness tear. No atrophy nor retraction. BICEPS TENDON: Exhibits normal position within the intertubercular groove. No evidence of tear. LABRUM: No evidence of paralabral cyst. There is no abnormal signal in the superior labrum posterior to the biceps insertion site. There is also no tear of the posterior labrum nor significant tearing of the anterior labrum. No evidence of [place] lesion. Inferior labrum appears intact. Slight thinning of the inferior glenohumeral ligament is noted. QUADRILATERAL SPACE: No evidence of mass in the region of the axillary nerve and dorsal circumflex humeral vessels. Visualized triceps muscle at this level appears unremarkable. OTHER: The requisition states that there is also a possible posterior shoulder area soft tissue mass. There is no evidence of lipoma no significant focal muscular abnormality in the posterior aspect of the shoulder within the field of view of this study. IMPRESSION: 1. There is thickening and significant tendinosis signal in the supraspinatus tendon (1 cm width) and conjoined region of the infraspinatus tendon. Small amount of fluid in the subacromial space 2. There is also signal abnormality in the anterior cuff-subscapularis multipennate tendon which has appearance of partial bordering on thin full- thickness tear. There does appear to be a small amount of fluid in the anterior subacromial space. 3. No evidence of biceps tendon tear nor labral tear. 4. Mild-moderate degenerative changes in the AC joint. Minimal degenerative changes in the glenohumeral joint. Minimal aunt of increased glenohumeral joint fluid. No loose intra-articular bodies evident. No obvious posterior shoulder mass in the field of view of this study. DATA REPOSITORY:
== END 2025-02-06 02:55 ==
LOC: DI 02:35
PROVIDERS: PCP Family Medicine; Visit Provider Student in an Organized Health Care Education/Training Program
DX: M79.89 Other specified soft tissue disorders; M19.011 Primary osteoarthritis, right shoulder
CPT/HCPCS: 73221

== ENCOUNTER 2025-03-24 10:46 | Day surgery (SDC) | payer BC, SELFPAY ==
[2025-03-24] VITALS (32 sets, daily range): BP systolic 85–151; BP diastolic 48–116; PULSE 38–69; RESP 8–22; TEMP 36.3–36.8; O2SAT 93–100; BMI 26.4
--- NOTE | 2025-03-24 07:20 | PDOC.DSDIS_ITS ---
Date of service: 03/24/25 Discharge Plan Disposition Patient Disposition: Home Condition: Stable Discharge Details Attending Provider: Mumtaz Walls Primary Care Provider: Nayeli Rios V Home Meds and New Rx's Prescriptions: New naproxen 250 mg tablet 250 - 500 mg PO BID PRN (Reason: moderate pain and swelling) Qty: 40 0RF oxycodone 5 mg tablet 5 - 10 mg PO .q4-6h MDD 30 mg PRN (Reason: severe pain) Qty: 18 0RF Continued acetaminophen 325 mg capsule 325 mg PO ONCE PRN valacyclovir [Valtrex] 500 MG tablet 500 mg PO PRN PRN cyclobenzaprine 5 mg Tablet 10 mg PO DIRECTED PRN Discontinued ibuprofen 400 mg Tablet 400 mg PO DIRECTED PRN Discharge Instructions Additional Instructions: Surgery: Right shoulder arthroscopy with rotator cuff repair (subscapularis), extensive debridement, subacromial decompression, and open biceps tenodesis 03/24/25; Partial articular supraspinatus tearing. Activity: For 6 weeks, you should keep your arm at your side in a neutral position at all times except for physical therapy. Do not try to lift or raise your arm using your own muscles. You should use the sling whenever you are out of the house. At home it is best to remove the sling and rest the arm on a pillow at your side or support the operative side with your other hand. You may allow the arm to dangle at your side. A physical therapy prescription will be sent electronically to begin in about 3 weeks. Standard protocol. Prescriptions: Naproxen 250 mg take 1-2 every 12 hours with a meal as needed for moderate pain Oxycodone 5 mg take 1-2 every 4-6 hours as needed for severe pain You may use [id number] Tylenol (acetaminophen) as needed for mild pain. These pain medications may be taken all at once or in different combinations as needed. Also, recommend Colace (docusate) as a stool softener as surgery and pain medicine cause constipation. You may try [id number] diphenhydramine (Benadryl) 25-50 mg nightly as a sleep aid Dressings: Remove shoulder bandage after 3 days. Leave the sticky Steri-Strips in place until they fall off or remove them after you shower. Cover the inci sions with Band-Aids or leave them open to air. The biceps bandage (inside upper arm) is glued on separately. You may leave this one on a few days longer if it is difficult to remove. There is also glue underneath this bandage that can be left in place until it peels off. You may shower after 5 days. Follow-up: 10-[address] Walls You may take off the leg compression stockings this evening at home. You may also leave them on a few days longer if you have a history of leg swelling or edema. Let us know right away if you develop any redness, drainage, fevers, chest pain, or trouble breathing. Do not drink alcohol or drive for at least 24 hours after anesthesia. Please call the office during business hours with any questions or concerns. Stand Alone Forms: Anesthesia Discharge Inst., Donnas.Nerve Block Instructions, Katelin Tanner (DSU), Portal Information Referrals: Mumtaz Walls MD [ [facility] STAFF PHYSICIAN, Orthopaedic Surgical] - 04/04/25 1:30 pm Discharge Orders Discharge Orders: Discharge Order (Routine); Ordered 03/24/25 Ordered By: Yesi Erazo DS: Diagnosis Discharge Diagnosis (1) SLAP lesion of right shoulder: Status: Acute (2) Rotator cuff tear, right: Status: Acute (3) Bursitis of right shoulder: Status: Acute
--- NOTE | 2025-03-24 07:52 | W.ANESPRE ---
General Info Date of Service Date Performed: 03/24/25 Height: 6 ft 2 in Weight: 93.44 kg Body Mass Index (BMI): 26.4 Surgical Procedure: Operation Date: 03/24/25 12:25 Proposed Procedure Side Surgeon p Shoulder Rotator Cuff Arthroscopic w/Extensive Debridement, Biceps Tenodesis, Subacromial Decompression Right Mumtaz Walls MD Meds Allergies and Home Medications Allergies Allergy/AdvReac Type Severity Reaction Status Date / Time prednisone AdvReac Severe extreme Verified 03/24/25 11:10 anger Home Medication Medication Instructions Recorded valacyclovir 500 mg tablet 500 mg PO PRN PRN 03/04/17 (Valtrex) acetaminophen 325 mg capsule 325 mg PO ONCE PRN 05/29/21 cyclobenzaprine 5 mg tablet 10 mg PO DIRECTED PRN 09/15/22 ibuprofen 400 mg tablet 400 mg PO DIRECTED PRN 09/15/22 naltrexone 50 mg tablet 50 mg PO DAILY 12/30/24 Current Visit Medications: Current Medications Generic Name Dose Route Start Last Admin Trade Name Freq PRN Reason Stop Dose Admin Ringer's Solution 1,000 mls @ 30 mls/hr 03/24/25 06:00 IV 03/24/25 23:59 INFUSION SOFIA Cefazolin Sodium/Dextrose 2 gm in 50 mls @ 100 mls/hr 03/24/25 06:00 Ancef Duplex IVPB 03/24/25 23:59 PREOP SOFIA Tranexamic Acid/Sodium Chloride 1,000 mg in 100 mls @ 600 mls/hr 03/24/25 06:00 IVPB 03/24/25 23:59 PREOP SOFIA IV Miscellaneous Supplies 1 each 03/24/25 06:00 Iv Access IV 03/24/25 23:59 DIRECTED SOFIA Sodium Chloride 0 ml 03/24/25 06:00 Normal Saline Flush 10 Ml Syr IV 03/24/25 23:59 PRN PRN Sodium Chloride 0 ml 03/24/25 06:00 Normal Saline 10 Ml Vial IJ 03/24/25 23:59 DIRECTED PRN Sterile Water 0 ml 03/24/25 06:00 Water,Injection,Sterile 10 Ml Vial IJ 03/24/25 23:59 DIRECTED PRN PFSH Active Problems Active Problems: Problem Status Onset Code Impingement syndrome of right shoulder Acute M75.41 Bursitis of right shoulder Acute M75.51 SLAP lesion of right shoulder Acute S43.431A Palpable mass of soft tissue of shoulder Acute M79.89 Rotator cuff tear, right Acute M75.101 Essential tremor Acute G25.0 Tobacco dependence due to cigarettes Acute F17.210 Anxiety Chronic F41.9 Heavy alcohol consumption Acute Z78.9 Cough Acute R05.9 Acute renal insufficiency Acute N28.9 Screening for colon cancer Acute Z12.11 Medical History Medical History (Updated 03/22/25 @ 10:54 by Daquan Camara) Lyme disease ACL (anterior cruciate ligament) tear Right groin pain Skin lesion Tongue lesion Sprain of wrist, left Marlo-Felipe fracture of left radius H/O cold sores Abnormal auditory perception (12/28/17) Daytime sleepiness (12/28/17) Episode of apnea (12/28/17) Smoker (12/28/17) Fracture of thoracic spine pt. 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 Tobacco Smoking/Tobacco Use Status: Current every day Tobacco Type: cigarettes Smoking cigarettes per day: 13 Alcohol Alcohol Intake: current Alcohol intake frequency: 3 or more drinks per day Alcohol type: beer Details: Consumes 6 beers/day Substance Use Substance use: Occasionally Substance use type: marijuana Vital Signs and Lab Results Vital Signs Most Recent Vital Signs in EMR: Temp Pulse Resp BP Pulse Ox 36.8 C 69 16 124/85 100 03/24/25 11:00 03/24/25 11:00 03/24/25 11:00 03/24/25 11:00 03/24/25 11:00 Imaging and Studies Imaging and Studies Study information below may be from another EMR and interpreted by another provider. Please see original notes in EMR for more complete details. EKG Summary: 02/19: Conclusion Sinus bradycardia...rate< 60 Prolonged SD interval...SD >210, V-rate 50- 90 ST elev, probable normal early repol pattern...ST elevation Stress Test Summary: 2014: negative for ischemia. Echocardiogram Summary: 07/2014: LVEF 60-65%, mild MR, LA/RA mild dilation, normal RVFxn. Other Study Summary:: holter: SR with OVC - 600 /hr. Anesthesia Assessment and Plan Anesthesia History Personal History: No History of Anesthesia Complications Family History: No Family History of Anesthesia Complications Exercise Tolerance Exercise Tolerance: Metabolic Equivalents>4 Cardiac & Pulmonary Exam Cardiac Exam: Normal S1/S2 Heart Sounds Pulmonary Exam: Clear Bilateral Breath Sounds Cardiac and Pulmonary Comment:: Sleep apnea, unable to tolerate CPAP Implantable Cardiac Device Does patient have a Pacemaker or an ICD?: No Airway Exam Known Difficult Airway: No Mallampati Class: 2 Mouth Opening: Normal (> 3cm) Thyromental Distance: Greater than 3 cm Neck Range of Motion: Full ROM Neck Circumference: Normal Teeth Condition: Normal Dentition ASA Classification ASA Score: ASA 2 Emergency Case?: No NPO Status NPO Status: NPO Clears >2 hours, Solids >8 hours Anesthesia Plan Resuscitation Status: Full Code Anesthesia Technique: General Anesthesia Airway Planned: Endotracheal Tube Pain Management: Surgeon and patient request nerve block Monitors Used: Standard Monitors Preoperative Comments:: 55 yo for shoulder scope. Sig PMHx: anxiety, tremor smoker, daily EtOH, occ cannabis. Previous Anes: - colo, prop, natural airway, no issues. - elbow, prop, phenyl gtt, mac 4 grade 2b (mac 3 first with 2b, swapped to mac 4 with 2b), easy mask. supraclav with 2 mg midaz, 20 mL 0.5% and 10 mL exparel (block lasted ~ 48 hr).
--- NOTE | 2025-03-24 09:00 | W.PM.OP ---
Operative Note Operative Note PRE-OP DIAGNOSIS: Right: 1. Rotator cuff partial tearing 2. SLAP tear 3. Bursitis 4. Impingement POST-OP DIAGNOSIS: same PROCEDURE: Right: 1. Rotator cuff repair, CPT# 49017. This involved repair of the subscapularis using circumferential sutures close the defect. 2. Open biceps tenodesis, CPT# 95366. This involved reattaching the long head of the biceps tendon to the proximal humerus in the sub-pectoral area of the bicipital groove at the correct tension. 3. Extensive debridement, CPT# 70589. This involved using arthroscopic hand instruments, power instruments, and radiofrequency instruments to release the long head of the biceps tendon and debride areas of labral tearing, SLAP tearing, rotator interval synovitis, partial articular rotator cuff tearing/degeneration and released the MGHL working within the glenohumeral joint anteriorly, superiorly and posteriorly. 4. Subacromial decompression with partial acromioplasty, CPT# 16738. This involved using arthroscopic power instruments and a radiofrequency wand to complete a bursectomy and smooth the undersurface of the acromion. The economist research assistant was medically required in order to help assist in techniques above, which require positioning the arm, holding the arthroscope, and manipulating multiple instruments and sutures at the same time. This cannot be done without the help of an experienced economist research assistant. SURGEON: Mumtaz Walls WASH OIL PUMP OPERATOR: Yesi Erazo ANESTHESIA TYPE: Local By Surgeon, General LMA/ETT and Primary Nerve Block Refer to Anesthesia Record ESTIMATED BLOOD LOSS: 10 PATHOLOGY: none sent COMPLICATIONS: None Patient was transported to: PACU Patient's condition: stable Implants: Arthrex: Unicortical Proximal Biceps Tenodesis Button Indications: The patient was diagnosed with the above conditions and appropriately indicated for surgical intervention. Please see complete medical record for details. Findings: Exam under anesthesia: Full range of motion, no instability, no biceps deformity Glenohumeral joint: Well-preserved glenohumeral cartilage. Significant biceps anchor injection and inflammation about an unstable biceps anchor SLAP tear and progressing down the bicipital groove. Moderately large area of supraspinatus articular sided degeneration, which appeared like mucoid degeneration with some limited fraying, but no significant thickness involvement or footprint exposure. Subscapularis with moderate area especially laterally of widening fraying and intrasubstance tearing without much footprint involvement. [facility] L with thickening and early adhesions to the subscapularis. Subacromial space: Significant bursitis. Mild inferior acromial impingement on the bursal cuff. Bursal rotator cuff intact. Procedure Description: In the operating room, general anesthesia was induced. Bilateral shoulders were examined. The patient was positioned in the beachchair position. All bony prominences were well-padded. Preoperative antibiotics were administered. The shoulder was prepped and draped in the usual sterile fashion. The correct patient, procedure, and side of the procedure were all verified prior to incision. Starting through the posterior portal a standard complete diagnostic arthroscopy was performed of the glenohumeral joint including inspection of the long head of the biceps, anterior and superior labrum, subscapularis tendon, supraspinatus and infraspinatus tendons, and axillary recess. The glenoid and humeral head cartilage as well as the posterior labrum were inspected from an anterior viewing portal. Significant findings and interventions noted above. The biceps tendon was released from the superior labrum using arthroscopic scissors. A rigid cannula was inserted anteriorly and a single portal technique was used to shuttle 2 separate circumferential suture tape sutures with a 9 degree lasso about the mid to lateral portion of the intrasubstance tendon tearing and secured with SMC arthroscopic knots directed anteriorly out of the joint nicely closing the tear void and recruiting normal tendon roundness and anatomy. Tendon repair was stable and did not require any reattachment to the lesser tuberosity. Starting through the posterior portal, the arthroscope was directed into the subacromial space. A lateral 50 yard line lateral portal was created. A combination of power instruments and a radiofrequency ablator were used to debride bursitis anteriorly, posteriorly, and laterally as well as expose and smooth bone spurring on the undersurface of the acromion. The coracoacromial ligament was partially released. The bursectomy was completed viewing laterally and working from posteriorly and the rotator cuff was thoroughly inspected with findings noted above. The shoulder was drained of arthroscopic fluid. All portal sites were copiously irrigated. Bupivacaine with epinephrine was infiltrated about a medium-sized longitudinal incision at the inferior margin of the pectoralis major localized over the long head of the biceps tendon. Blunt and sharp dissection were used to expose the tendon in the bicipital groove. The tendon was brought out of the wound and kept off the skin on top of a blue towel. The correct location for sub-pectoral fixation was localized, prepped with a rasp, and then drilled with a 3.2 mm drill pin in a unicortical fashion. Using a fiber loop suture the tendon was prepped from the musculotendinous junction a few centimeters proximal. The excess tendon was amputated. The free suture ends were then passed through the unicortical button implant. The drill pin was removed and the implant was placed into the humeral intramedullary canal. The button was flipped and the sutures were tensioned bringing the tendon down to bone. Tension and fixation were then tested and found to be appropriate. The suture tails were brought on either side of the tendon and then tied compressing tendon to bone. The wound was copiously irrigated with normal saline. Subcutaneous tissue was closed using 3-0 Monocryl in a buried interrupted fashion. Skin was closed using 3-0 Monocryl in a buried subcuticular running fashion. Skin glue was applied over the incision. Mastisol was applied about the incision. The incision was covered with Telfa, gauze, and covered with a Tegaderm dressing. The portals were closed using 3-0 Monocryl in a buried fashion and then covered with Mastisol, Steri-Strips, Xeroform, dry gauze, and ABDs. The dressings were covered and secured with Medipore tape. The operative extremity was placed into a sling for immobilization. The patient awoke from anesthesia without complication and was transferred to the recovery room in a stable condition. Date of Procedure: 03/24/25
[2025-03-24] MEDS: Lactated Ringers 1,000 ML 30 ML IV (11:40)
[2025-03-24] MEDS: ceFAZolin 2 GM/50 ML BAG IVPB (12:56)
[2025-03-24] MEDS: TRANEXAMIC ACID/SOD. CHL. 1,000 MG/100 ML BAG 600 MG IVPB (13:00)
--- NOTE | 2025-03-24 13:15 | W.ANESNERVE ---
Nerve Block Single Injection Procedure Date and Time Date Performed: 03/24/25 Procedure Start: 12:40 Location Where Procedure Performed Procedure Location: Day Surgery Unit Reason Performed: Postoperative Analgesia Requesting Provider: Mumtaz Walls Timeout Performed Timeout Performed: Yes Monitoring Used ECG, Blood Pressure and SpO2 Sterility Sterility: Hand Hygiene, Surgical Cap, Surgical Mask, Sterile Gloves and Chlorhexidine Sedation Given During Procedure Sedation Given (Indicate Dose Given): Versed IV Dose:: 2 mg Patient Mental Status Patient Mental Status: Sedate with meaningful communication Nerve Block 1st Nerve Block: Laterality: Right Block Type: Interscalene Ultrasound Image Saved?: Yes Needle / Catheter Used: 100mm SonoPlex II Local Anesthetic Bolus (Indicate Dose Given): Lidocaine used for local infiltration of skin, Bupivacaine 0.5% Dose:: 10 mL and Exparel Dose:: 10 mL Additives (Indicate Dose Given): None Ultrasound: Sterile probe cover and gel used Nerve Stimulator: Supplement to Ultrasound use and No twitch or parasthesia noted < 0.5 mA (< 0.6 mA) Paresthesia: None Procedure Tolerated: No Complications Procedure Outcome: Successful Procedure Comment: Could use more midaz in the future. Performed By: Nathen Amador
[2025-03-24] MEDS: Bupivacaine 0.25% Pres-Free W/EPI 30 ML VIAL (13:32)
[2025-03-24] MEDS: EPINEPHrine 10 MG/10 ML ML (13:32)
[2025-03-24] MEDS: fentaNYL 100 MCG/2 ML VIAL IVP ×2 (14:57→15:02)
[2025-03-24] MEDS: LORazepam 20 MG/10 ML VIAL IVP (15:05)
[2025-03-24] MEDS: ACETAMINOPHEN 1,000 MG/100 ML BAG 400 MG IVPB (15:10)
--- NOTE | 2025-03-24 15:14 | ANES.POST_ITS ---
Postoperative Evaluation Date, Time and Location Date Performed: 03/24/25 Time Performed: 15:14 Patient Location: PACU Vital Signs Most Recent Imported Vital Signs: Most Recent Vital Signs Temp Pulse Resp BP Pulse Ox 36.4 C L 60 17 109/76 95 03/24/25 14:48 03/24/25 12:34 03/24/25 12:34 03/24/25 12:34 03/24/25 12:34 Pain Score Most Recent Pain Score: Most Recent Pain Score Pain Level 0 03/24/25 12:34 Assessment Mental Status: Arousable with meaningful communication Airway and Respiratory Function: Patent airway with normal (patient baseline) respiratory exam Cardiovascular Function: Hemodynamically Stable Hydration Status: Adequately Hydrated Nausea & Vomiting: No Nausea or Vomiting Pain: Pain is Moderate or Severe (Pain is more on his back. Per Korsh this is preexisting. ) Postoperative Pain Management: Pain being addressed with medication Peripheral Nerve Block: Regional nerve block not resolved at time of post oper ative discharge
[2025-03-24] MEDS: HYDROmorphone 2 MG/ML SYR IVP ×2 (15:15→15:33)
== END 2025-03-24 17:03 | disposition home or self-care (01) ==
LOC: SUR 10:46
PROVIDERS: PCP Family Medicine; Visit Provider Student in an Organized Health Care Education/Training Program
PROC: (CPT 29827; principal; 2025-03-24 12:15)
DX: S43.431A Superior glenoid labrum lesion of right shoulder, initial encounter (principal); M75.101 Unspecified rotator cuff tear or rupture of right shoulder, not specified as traumatic; M75.51 Bursitis of right shoulder; G89.18 Other acute postprocedural pain
CPT/HCPCS: 23430; 29827; 29823; 29826; 64415; J0131; J0665; J0666; J0690; J1100; J1171; J1885; J2060; J2250; J2371; J2405; J2704; J3010; J3475